=== PATIENT | male | born 1930 | race Caucasian/White ===

== ENCOUNTER 2016-08-10 12:04 | Inpatient (IN) | payer MEDICARE, OTHER ==
[2016-08-10] MEDS ORDERED: SODIUM CHLORIDE 0.9% 3 ML FLUSH FLUSH PRN (12:17)
[2016-08-10 12:28] LABS: AUTOMATED BASOPHIL 0.5 % (0-2); AUTOMATED LYMPH 14.5 % (17-44); AUTOMATED MONOCYTE 9.2 % (3-10); AUTOMATED NEUTROPHIL 74.8 % (45-76)
--- NOTE | 2016-08-10 12:54 | EDPRACDOC ---
<GómezLisa longjamel Diaz - Last Filed: 08/10/16 15:26> - General Information Information Source: Patient, Skilled Nursing, Visual Developer Mode Of Arrival: Ambulance - History of Present Illness Onset: 08/08/2016 Exact Onset of Symptoms: Unknown HPI: PT PRESENTED TO ED WITH BILATERAL LOWER EXT EDEMA RT GREATER THAN LT, WEAKNESS FATIGUE NOT MOVING AROUND LIKE NORMAL MILD CONFUSION AND DECREASED APPETITE FOR SEVERAL DAYS ACCORDING TO DAUGHTER. PT CURRENTLY RESIDES AT [facility] WITH HIS . DAUGHTER STATES THAT THE ONLY NEW MEDICATION WAS STARTED IN MAY AND WAS PROZAC. Symptoms Started: Reports: Gradually Symptoms Description: Constant Weakness: Bilateral: Generalized Symptoms: Reports: Weak Symptom Severity: Reports: Unable to performs ADL's Associated signs and symptoms:: Reports: Nausea (INTERMITTENT) <Patti Mcgee - Last Filed: 08/10/16 16:35> - General Information Chief Complaint: Generalized Weakness Stated Complaint: WEAKNESS Time Seen by Provider: 08/10/16 12:16 Home Medications: Home Medications Aspirin [Aspirin EC] 81 mg PO HS 03/18/13 Nitroglycerin [Nitrostat] 0.4 mg SL Q5M PRN 03/18/13 Acetaminophen Ex Str Tablet [TYLENOL EXTRA STRENGTH Tablet] 1,000 mg PO Q4H PRN 08/10/16 Aspirin [Ramon Aspirin] 325 mg PO .PRN PRN 08/10/16 Cetirizine HCl [Zyrtec] 10 mg PO .[id number] 08/10/16 Ferrous Sulfate [Feosol] 325 mg PO QAM 08/10/16 Fluoxetine HCl [Prozac] 20 mg PO HS 08/10/16 Guaifenesin [Robitussin] 10 ml PO .[id number] PRN 08/10/16 Hydrocortisone/Aloe Vera [Hydrocortisone-Aloe 0.5% Cream] 28.4 gm TOP Q6H PRN Isosorbide Mononitrate [Isosorbide Mononitrate ER] 60 mg PO QAM 08/10/16 Loperamide HCl [Imodium A-D] 2 mg PO DIR PRN 08/10/16 Magnesium Hydroxide [Milk of Magnesia] 30 ml PO DAILY PRN 08/10/16 Magnesium Hydroxide/Al Hydrox [Mylanta Liquid] 30 ml PO QID PRN 08/10/16 Melatonin/Pyridoxine [Melatonin 3 mg Tablet] 1 each PO HS 08/10/16 Multivitamin [Multiple Vitamins] 1 each PO QAM 08/10/16 Neomy Sulf/Bacitrac Zn/Poly [Triple Antibiotic Ointment] 28 gm TOP Q12H PRN Pantoprazole Sodium [Protonix] 40 mg PO MOWEFR 08/10/16 Pravastatin [Pravachol] 20 mg PO HS 08/10/16 Allergies/Adverse Reactions: Allergies Allergy/AdvReac Type Severity Reaction Status Date / Time No Known Allergies Allergy Verified 08/10/16 12:24 ED Past Medical History - Patient Medical History Cardiac History: Reports: CABG (1996), Other GI/ History: Reports: [facility] GI Yes/No Other (GIB (REMOTE)) <Sagrario Gómez - Last Filed: 08/10/16 15:26> - History Reviewed Yes Nurses notes reviewed and agree except as marked Travel Outside of [place] in the Last 3 Months?: No Information Unobtainable: Yes Unable to obtain information due to patient condition (FAMILY AT BEDSIDE FOR INFO) - Patient Medical History Neurological History: Reports: Dementia Cardiac History: Reports: Coronary Artery Disease, Hypertension, Heart Attack, CABG, Hypercholesterolemia GI/ History: Reports: Ulcer Psychological History: Denies: Depression Systemic History: Reports: Anemia Surgical History: Reports: CABG, Hernia Surgery - Family Medical History Reports: Diabetes - Social Medical History Smoking Status: Current status unknown ETOH: None Substance Abuse: None Lives With: Spouse, Other Lives In: Assisted Living ([facility]) <Patti Mcgee - Last Filed: 08/10/16 16:35> EDM Review of Systems - Review of Systems ROS Negative Except as Marked: Yes All systems reviewed and were negative except as marked ROS Unobtainable: Yes Review of systems cannot be obtained due to the patient's medical condition ([place] FAMILY AT BEDSIDE FOR INFO) Constitutional: Fatigue, Loss of Appetite, Weakness. negative: Chills, Fever Eyes: No Symptoms Reported. negative: Redness, Blurred Vision, Double Vision, Discharge, Pain, Light Sensitive, Photophobia Ears: No Symptoms Reported. negative: Pain, Hearing Loss, Drainage, Ear Pulling Throat: No Symptoms Reported. negative: Pain, Swelling Nose: No Symptoms Reported. negative: Congestion, Bleeding, Discharge, Injection, Swelling, Deformity, Ecchymosis, Tender, Abrasion, Laceration Mouth: No Symptoms Reported. negative: Pain, Drooling Respiratory: No Symptoms Reported. negative: Cough, Brassy Cough, Barky Cough, Shortness of Breath, Wheezing, Hemoptysis Cardiovascular: No Symptoms Reported. negative: Chest Pain, Palpitations, Syncope, Edema, Orthopnea, PND, Skin Mottling, Cyanosis Gastrointestinal: No Symptoms Reported. negative: Constipation, Diarrhea, Formula Intolerance, Melena, Nausea, Pain, Vomiting Genitourinary: No Symptoms Reported. negative: Dysuria, Hematuria, Frequency, Discharge, Bleeding, Testicular Pain, Neurological: No Symptoms Reported. negative: Headache, Dizziness, Seizure, Numbness, Weakness, Speech Difficulty, Gait Difficulty Musculoskeletal: No Symptoms Reported. negative: Neck, Chestwall, Ribs, Back, Shoulder, Arm, Elbow, Forearm, Wrist, Hand, Pelvis, Hip, Femur, Knee, Leg, Ankle , Foot Integumentary: Other (BILATERAL LOWER EXT EDEMA). negative: Bruising, Itching, Rash, Wound Allergic/Immunologic: No Symptoms Reported. negative: Hives, Itching Hematologic: No Symptoms Reported. negative: Lymphadenopathy, Easy Bruising, Easy Bleeding Endocrine: No Symptoms Reported. negative: Weight Gain, Weight Loss Psychiatric: No Symptoms Reported. negative: Anxiety, Depression, Hallucinations, Insomnia, Suicidal <Patti Mcgee - Last Filed: 08/10/16 16:35> - Physical Exam Last recorded Vital Signs: Last Vital Signs Temp 98.1 F 08/10/16 12:09 Pulse 82 08/10/16 13:11 Resp 18 08/10/16 13:11 BP 150/67 08/10/16 13:11 Pulse Ox 97 08/10/16 13:11 Oxygen Pulse Oxygen Saturation 97 O2 Device Room Air Oxygen Flow Rate Fraction of Inspired Oxygen ( FIO2) <Sagrario Gómez - Last Filed: 08/10/16 15:26> - Physical Exam Constitutional: No apparent distress, Alert (Awake), Confused (MILD FOR DEMENTIA ) Oriented to: Time, Person, Place Last recorded Vital Signs: Last Vital Signs Temp 98.1 F 08/10/16 12:09 Pulse 93 08/10/16 12:09 Resp 15 08/10/16 12:09 BP 144/76 08/10/16 12:09 Pulse Ox 96 08/10/16 12:09 Oxygen Pulse Oxygen Saturation 96 O2 Device Oxygen Flow Rate Fraction of Inspired Oxygen ( FIO2) - HEENT Head: Normal ( normocephalic) Eye Exam: Normal (PERRL, EOMI, Sclera white) Oropharynx: Normal (Pharynx:Moist without exudate,Gums-no swelling) Tympanic Membrane: Normal ENT EAC: Normal TMJ: Normal Nose: No Symptoms Reported (septum midline) Neck: Normal (FROM, trachea at midline) - Respiratory/Cardiovascular Respiratory: Diminished, Other (COARSE BILATERAL) Cardiovascular: Normal (RRR without murmur, gallop or rub) - GI Auscultation: Normal (NABS) Palpation: Normal (Soft,No rebound or guarding, non distended) Tenderness: Non tender Carmona's Sign: Negative - Bladder: Normal - Musculoskeletal Back: Normal (Non-Tender) Extremities: Edema (BILATERAL RT GREATER THAN LEFT) - Integumentary Skin: Normal, Warm, Dry, Other (MULTIPLE HEALING WOUNDS TO LOWER EXTREMITIES) Lymphatics: Normal (no adenopathy) - Neurologic Memory Impaired: Normal Motor Function: Normal (Normal tone, Pulses 2+ No cyanosis or edema, FROM) Cranial Nerve: Normal (CN II-X11 intact sensation, strength 5/5) Cerebellar: Normal Mood Description: Normal Perception: Normal <Patti Mcgee - Last Filed: 08/10/16 16:35> - Re-evaluation Re-evaluation 3 Re-evaluation Time: 14:47 DISCUSSED WITH PRIMARY BOARD HAMMER OPERATOR DR. GARZA: HISTORY OF CORONARY ARTERY DISEASE IN THE PAST WITH BYPASS GRAFTING IN PREVIOUS BALLOON ANGIOPLASTY. HOWEVER NO HISTORY OF CONGESTIVE HEART FAILURE. NO OTHER SYMPTOMS CURRENTLY GOING ON AT THIS TIME DR. GARZA WILL SEE IN THE EMERGENCY DEPARTMENT. I DISCUSSED INPATIENT CARE VERSUS OUTPATIENT CARE WITH THE FAMILY AND THEY MUCH PREFER TO HAVE THIS MANAGED AN INPATIENT SETTING. - Results 08/10/16 12:15 08/10/16 12:15 WBC 9.3 xk/uL (3.8-10.8) 08/10/16 12:15 RBC 4.48 xM/uL (4.70-6.10) L 08/10/16 12:15 Hgb 13.8 g/dL (14.0-18.0) L 08/10/16 12:15 Hct 41.1 % (42-52) L 08/10/16 12:15 MCV 92 fL (80-94) 08/10/16 12:15 MCH 30.7 pg (27-32) 08/10/16 12:15 MCHC 33.5 g/dl (33-36) 08/10/16 12:15 RDW 14.1 % (11.5-14.5) 08/10/16 12:15 Plt Count 235 xk/uL (130-400) 08/10/16 12:15 MPV 8.0 fL (7.4-10.4) 08/10/16 12:15 Neut % (Auto) 74.8 % (45-76) 08/10/16 12:15 Lymph % (Auto) 14.5 % (17-44) L 08/10/16 12:15 [place] % (Auto) 9.2 % (3-10) 08/10/16 12:15 Eos % (Auto) 1.0 % (0-5) 08/10/16 12:15 Baso % (Auto) 0.5 % (0-2) 08/10/16 12:15 Absolute Neuts (auto) 6.88 xk/uL (1.7-8.2) 08/10/16 12:15 Absolute Lymphs (auto) 1.30 xk/uL (0.65-4.75) 08/10/16 12:15 PT 11.8 SEC (9.2-11.2) H 08/10/16 12:15 INR 1.1 08/10/16 12:15 APTT 27.3 SEC (22-35) 08/10/16 12:15 Sodium 140 mEq/L (137-146) 08/10/16 12:15 Potassium 4.6 mEq/L (3.5-5.1) 08/10/16 12:15 Chloride 105 mEq/L (98-107) 08/10/16 12:15 Carbon Dioxide 27 mMOL/L (22-33) 08/10/16 12:15 Anion Gap 13 mEq/L (8-16) 08/10/16 12:15 BUN 34 MG/DL (9-20) H 08/10/16 12:15 Creatinine 1.20 MG/DL (0.66-1.25) 08/10/16 12:15 Estimated GFR (MDRD) 58 mL/min (>=60) L 08/10/16 12:15 Glucose 107 MG/DL (70-99) H 08/10/16 12:15 Calculated Osmolality 277 MOs/Kg (270-290) 08/10/16 12:15 Calcium 8.6 MG/DL (8.4-10.2) 08/10/16 12:15 Corrected Calcium 9.2 MG/DL (8.4-10.2) 08/10/16 12:15 Total Bilirubin 0.8 MG/DL (0.2-1.3) 08/10/16 12:15 AST 31 IU/L (17-59) 08/10/16 12:15 ALT 37 IU/L (21-72) 08/10/16 12:15 Alkaline Phosphatase 79 IU/L (50-160) 08/10/16 12:15 Troponin I 0.02 ng/mL (<.04) 08/10/16 12:15 Tcm-L-Qdrpyjenlag Pept 23181 pg/mL (0-1800) H 08/10/16 12:15 Total Protein 6.9 G/DL (6.3-8.2) 08/10/16 12:15 Albumin 3.4 G/DL (3.5-5.0) L 08/10/16 12:15 Urine Color Yellow 08/10/16 13:19 Urine Clarity Clear 08/10/16 13:19 Urine pH 5.0 (5.0-8.0) 08/10/16 13:19 Ur Specific [place] 1.020 (1.003-1.035) 08/10/16 13:19 Urine Protein Trace (NEG/TRACE) 08/10/16 13:19 Urine Glucose (UA) Neg (NEGATIVE) 08/10/16 13:19 Urine Ketones Neg (NEGATIVE) 08/10/16 13:19 Urine Occult Blood Neg (NEG/TRACE) 08/10/16 13:19 Urine Nitrite Neg (NEGATIVE) 08/10/16 13:19 Urine Bilirubin Neg (NEGATIVE) 08/10/16 13:19 Urine Urobilinogen 0.2 MG/DL (0-1) 08/10/16 13:19 Ur Leukocyte Esterase Neg (NEGATIVE) 08/10/16 13:19 Urine RBC 2-5 (0-2) H 08/10/16 13:19 Urine WBC 0-2 (0-2) 08/10/16 13:19 Ur Epithelial Cells Occ 08/10/16 13:19 Urine Bacteria Few (NEG/FEW) 08/10/16 13:19 Urine Mucus Mod (NEG/OCC) H 08/10/16 13:19 Lab Results 08/10/16 08/10/16 08/10/16 13:19 12:15 12:15 WBC 9.3 RBC 4.48 L Hgb 13.8 L Hct 41.1 L MCV 92 MCH 30.7 MCHC 33.5 RDW 14.1 Plt Count 235 MPV 8.0 Neut % (Auto) 74.8 Lymph % (Auto) 14.5 L [place] % (Auto) 9.2 Eos % (Auto) 1.0 Baso % (Auto) 0.5 Absolute Neuts (auto) 6.88 Absolute Lymphs (auto) 1.30 PT 11.8 H INR 1.1 APTT 27.3 Sodium Potassium Chloride Carbon Dioxide Anion Gap BUN Creatinine Estimated GFR (MDRD) Glucose Calculated Osmolality Calcium Corrected Calcium Total Bilirubin AST ALT Alkaline Phosphatase Troponin I Nsz-E-Orkjqdhzsor Pept Total Protein Albumin Urine Color Yellow Urine Clarity Clear Urine pH 5.0 Ur Specific [place] 1.020 Urine Protein Trace Urine Glucose (UA) Neg Urine Ketones Neg Urine Occult Blood Neg Urine Nitrite Neg Urine Bilirubin Neg Urine Urobilinogen 0.2 Ur Leukocyte Esterase Neg Urine RBC 2-5 H Urine WBC 0-2 Ur Epithelial Cells Occ Urine Bacteria Few Urine Mucus Mod H 08/10/16 12:15 WBC RBC Hgb Hct MCV MCH MCHC RDW Plt Count MPV Neut % (Auto) Lymph % (Auto) [place] % (Auto) Eos % (Auto) Baso % (Auto) Absolute Neuts (auto) Absolute Lymphs (auto) PT INR APTT Sodium 140 Potassium 4.6 Chloride 105 Carbon Dioxide 27 Anion Gap 13 BUN 34 H Creatinine 1.20 Estimated GFR (MDRD) 58 L Glucose 107 H Calculated Osmolality 277 Calcium 8.6 Corrected Calcium 9.2 Total Bilirubin 0.8 AST 31 ALT 37 Alkaline Phosphatase 79 Troponin I 0.02 Cwz-Q-Aqnxnvjwciu Pept 20271 H Total Protein 6.9 Albumin 3.4 L Urine Color Urine Clarity Urine pH Ur Specific [place] Urine Protein Urine Glucose (UA) Urine Ketones Urine Occult Blood Urine Nitrite Urine Bilirubin Urine Urobilinogen Ur Leukocyte Esterase Urine RBC Urine WBC Ur Epithelial Cells Urine Bacteria Urine Mucus <Sagrario Gómez N - Last Filed: 08/10/16 15:26> - Differential Diagnosis Dehydration, Electrolyte disorder, Hypoglycemia, Other (CKD, CHF, PERIPHERAL EDEMA) - Results 08/10/16 12:15 08/10/16 12:15 WBC 9.3 xk/uL (3.8-10.8) 08/10/16 12:15 RBC 4.48 xM/uL (4.70-6.10) L 08/10/16 12:15 Hgb 13.8 g/dL (14.0-18.0) L 08/10/16 12:15 Hct 41.1 % (42-52) L 08/10/16 12:15 MCV 92 fL (80-94) 08/10/16 12:15 MCH 30.7 pg (27-32) 08/10/16 12:15 MCHC 33.5 g/dl (33-36) 08/10/16 12:15 RDW 14.1 % (11.5-14.5) 08/10/16 12:15 Plt Count 235 xk/uL (130-400) 08/10/16 12:15 MPV 8.0 fL (7.4-10.4) 08/10/16 12:15 Neut % (Auto) 74.8 % (45-76) 08/10/16 12:15 Lymph % (Auto) 14.5 % (17-44) L 08/10/16 12:15 [place] % (Auto) 9.2 % (3-10) 08/10/16 12:15 Eos % (Auto) 1.0 % (0-5) 08/10/16 12:15 Baso % (Auto) 0.5 % (0-2) 08/10/16 12:15 Absolute Neuts (auto) 6.88 xk/uL (1.7-8.2) 08/10/16 12:15 Absolute Lymphs (auto) 1.30 xk/uL (0.65-4.75) 08/10/16 12:15 Lab Results 08/10/16 12:15 WBC 9.3 RBC 4.48 L Hgb 13.8 L Hct 41.1 L MCV 92 MCH 30.7 MCHC 33.5 RDW 14.1 Plt Count 235 MPV 8.0 Neut % (Auto) 74.8 Lymph % (Auto) 14.5 L [place] % (Auto) 9.2 Eos % (Auto) 1.0 Baso % (Auto) 0.5 Absolute Neuts (auto) 6.88 Absolute Lymphs (auto) 1.30 - EKG EKG #1 EKG Time: 12:18 -: Yes EKG interpreted by me Rate: bpm: 89 [place]: Normal Rhythm: NSR Block: 1, AVB Hypertrophy: LVH ST: Normal <Patti Mcgee - Last Filed: 08/10/16 16:35> - Departure Yes I personally saw and evaluated the patient. Disposition: Admit IP To This Hospital Decision to Admit Time: 15:26 Decision to admit date: 08/10/16 Decision to admit: from ED - Physician Consulted Cardiology Time Called: 14:45 Provider Called: Trevor Garza Time Deputy General Counsel Returned Call: 14:45 Hospitalist Time Called: 15:27 Provider Called: Janet Munoz Time Deputy General Counsel Returned Call: 15:27 <Sagrario Gómez - Last Filed: 08/10/16 15:26> <Patti Mcgee - Last Filed: 08/10/16 16:35> - Departure Final Diagnosis: New onset of congestive heart failure Dyspnea Qualifiers: Dyspnea type: shortness of breath Qualified Code(s): R06.02 - Shortness of breath Instructions: Weakness (General), *Heart Failure (Activity, Diet, Worsening Symptoms, Weight Monitoring)(ED) Referrals: None,No Provider [Primary Care Provider] - One Week
[2016-08-10 12:55] LABS: BLOOD UREA NITROGEN 34 MG/DL (9-20); CALC CORRECTED 9.2 MG/DL (8.4-10.2); CALCIUM 8.6 MG/DL (8.4-10.2); CALCULATED OSMOLALITY 277 MOs/Kg (270-290); CHLORIDE 105 mEq/L (98-107); GLUCOSE 107 MG/DL (70-99); SODIUM LEVEL 140 mEq/L (137-146); TOTAL PROTEIN 6.9 G/DL (6.3-8.2)
--- NOTE | 2016-08-10 12:58 | DIRPT ---
CLINICAL DATA: Weakness. EXAM: PORTABLE CHEST 1 VIEW COMPARISON: 05/01/2013 chest radiograph. FINDINGS: Sternotomy wires appear aligned and intact. Mild cardiomegaly, increased. Otherwise stable mediastinal contour. No pneumothorax. New small right and moderate left pleural effusions. Hazy and linear parahilar opacities in the right greater than left lungs. Bibasilar lung opacities, likely atelectasis. IMPRESSION: 1. New mild cardiomegaly. New hazy and linear parahilar opacities in both lungs, asymmetric to the right, favor asymmetric moderate pulmonary edema from congestive heart failure. 2. New small right and moderate left pleural effusions with associated bibasilar atelectasis. Electronically Signed By: Les Beltran M.D. On: 08/10/2016 12:56
[2016-08-10 13:00] LABS: PARTIAL THROMB. TIME 27.3 SEC (22-35); PT-INR 1.1
[2016-08-10 13:35] LABS: WBC/URINE 0-2 (0-2)
[2016-08-10 13:36] LABS: LEUKOCYTES/URINE NEG (NEGATIVE); NITRITE/URINE NEG (NEGATIVE); URINE OCCULT BLOOD NEG (NEG/TRACE)
[2016-08-10] MEDS ORDERED: NITROGLYCERINE 2 % OINTMENT PACK TOP ONE (14:11)
[2016-08-10] MEDS ORDERED: FUROSEMIDE 40 MG/4 ML VIAL IV ONE (14:11)
[2016-08-10] MEDS ORDERED: ASPIRIN 325 MG TAB PO ONE (14:11)
--- NOTE | 2016-08-10 14:51 | PCM.CARDCO ---
Consultation Date: 08/10/16 Requesting Physician: Sagrario Gómez Melt Room Operator: Trevor Abrams Consult Reason: CHF - History of Present Illness Known to me he was seen in my office previously the history of CAD bypass surgery in 1996 and plain old balloon angioplasty of vein graft to the marginal in 2012 in the setting of type 2 myocardial infarction with GI bleed due to peptic ulcer disease and anemia. He has transition my practice he has had no cardiac diagnostic testing. Echocardiogram in [place] 2013 shows normal ejection fraction moderate aortic and mild mitral regurgitation. When I see the patient emergency room he is comfortable supine I cannot get him or his family take now which now that he was short of breath but they do tell me his legs were swollen he has had poor appetite he has lost weight has been increasingly weak and they have concerns about his Prozac cognition and spirits prompting the emergency room visit. Despite increasing edema is weight is down 4 lb in last month. He denies chest pain palpitation or syncope he just does not have an appetite and stopped eating. Chief Complaint: Shortness of breath and edema - Past Medical and Surgical History Cardiac History: Reports: Hypertension, CABG (1996), Hypercholesterolemia, Other GI/ History: Reports: Renal Disease, Ulcer, PMH GI Yes/No Other (GIB (REMOTE) ) Systemic History: Reports: Anemia Neurological History: Reports: Other (Dementia as a new diagnosis along with depression) Past Surgical History: Reports: CABG (1996) Allergies No Known Allergies Allergy (Verified 08/10/16 12:24) per pt Home Medications Aspirin [Aspirin EC] 81 mg PO HS 03/18/13 Nitroglycerin [Nitrostat] 0.4 mg SL Q5M PRN 03/18/13 Acetaminophen Ex Str Tablet [TYLENOL EXTRA STRENGTH Tablet] 1,000 mg PO Q4H PRN 08/10/16 Aspirin [Ramon Aspirin] 325 mg PO .PRN PRN 08/10/16 Cetirizine HCl [Zyrtec] 10 mg PO .[id number] 08/10/16 Ferrous Sulfate [Feosol] 325 mg PO QAM 08/10/16 Fluoxetine HCl [Prozac] 20 mg PO HS 08/10/16 Guaifenesin [Robitussin] 10 ml PO .[id number] PRN 08/10/16 Hydrocortisone/Aloe Vera [Hydrocortisone-Aloe 0.5% Cream] 28.4 gm TOP Q6H PRN Isosorbide Mononitrate [Isosorbide Mononitrate ER] 60 mg PO QAM 08/10/16 Loperamide HCl [Imodium A-D] 2 mg PO DIR PRN 08/10/16 Magnesium Hydroxide [Milk of Magnesia] 30 ml PO DAILY PRN 08/10/16 Magnesium Hydroxide/Al Hydrox [Mylanta Liquid] 30 ml PO QID PRN 08/10/16 Melatonin/Pyridoxine [Melatonin 3 mg Tablet] 1 each PO HS 08/10/16 Multivitamin [Multiple Vitamins] 1 each PO QAM 08/10/16 Neomy Sulf/Bacitrac Zn/Poly [Triple Antibiotic Ointment] 28 gm TOP Q12H PRN Pantoprazole Sodium [Protonix] 40 mg PO MOWEFR 08/10/16 Pravastatin [Pravachol] 20 mg PO HS 08/10/16 - Social History Lives: in Prison/[facility] Smoking Status: Current status unknown Social History: Denies: Alcohol Use, Substance Use Disorder - Family History Reports: Diabetes - Review of Systems Yes All systems reviewed and were negative except as marked Constitutional: Fatigue, Loss of Appetite, Weakness. negative: Chills, Fever - Respiratory negative: Cough, Hemoptysis, Shortness of Breath, Pleurisy - Cardiovascular Edema. negative: Chest Pain, Cyanosis, Orthopnea, Palpitations, PND, Syncope - Gastrointestinal Gastrointestinal: Other (Poor appetite weight loss) - Psychiatric Depression, Other (And dementia) - Physical Exam Constitutional: No apparent distress, Alert (Awake), Other (He appears very frail and chronically ill in appearance poor muscle mass) Oriented to: Time, Person, Place Exam: Last Vital Signs Temp 98.1 F 08/10/16 12:09 Pulse 90 08/10/16 14:40 Resp 16 08/10/16 14:40 BP 139/77 08/10/16 14:40 Pulse Ox 94 08/10/16 14:40 Intake & Output 08/09/16 08/10/16 08/10/16 23:59 07:59 15:59 Output Total 30 Balance -30 Patient's weight 120 lb - HEENT Head: Normal (Mild neck vein distention no bruit) Eye: Normal (PERRL, EOMI, Sclera white) Oropharynx: Normal (Pharynx:Moist without exudate,Gums-no swelling) Tympanic Membrane: Normal ENT EAC: Normal TMJ: Normal Nose: No Symptoms Reported (septum midline) - Respiratory/Cardiovascular Respiratory: Diminished, Other (COARSE BILATERAL). negative: Rales, Rhonchi, Wheezes Cardiovascular: Systolic murmur (A 2 of 6 apical murmur of MR 1 a 6 aortic outflow murmur 1 of 6 AR.). negative: Gallop/S3 - GI Auscultation: Normal (NABS) Palpation: Normal (Soft,No rebound or guarding, non distended) Tenderness: Non tender - Musculoskeletal Back: Normal (Non-Tender) Extremities: Edema (Right greater than left lower extremity 2+ in the right 1+ on the left no edema), Femoral Pulse, Pedal Edema, Pedal Pulse, Radial Pulse. negative: Calf Tenderness, Clubbing, Cyanosis - Integumentary Skin: Normal, Warm, Dry, Other (MULTIPLE HEALING WOUNDS TO LOWER EXTREMITIES). negative: Diaphoretic, Pale, Mottling, Petechiae Lymphatics: Normal (no adenopathy) - Neurologic Memory Impaired: Normal Cerebellar: Normal Mood Description: Normal Perception: Normal - Lab Results Laboratory Tests 08/10/16 08/10/16 08/10/16 12:15 12:15 12:15 Hgb 13.8 L Hct 41.1 L Plt Count 235 INR 1.1 Potassium 4.6 Creatinine 1.20 Troponin I 0.02 Fer-M-Dikxwpuplhr Pept 65001 H Chest x-ray report today 1. New mild cardiomegaly. New hazy and linear parahilar opacities in both lungs, asymmetric to the right, favor asymmetric moderate pulmonary edema from congestive heart failure. 2. New small right and moderate left pleural effusions with associated bibasilar atelectasis. Lower extremity venous duplex shows no evidence of deep vein thrombosis - Assessment/Plan (1) Heart failure I50.9 - HEART FAILURE, UNSPECIFIED Acute Present on Admission: Yes unspecified heart failure type Comment: New onset decompensated clinically and by BNP level and chest x-ray. I will start him on low-dose diuretic and a require an echocardiogram tomorrow to assess left ventricular systolic diastolic function valvular regurgitation and pulmonary pressures. (2) CAD (coronary artery disease) I25.10 - ATHSCL HEART DISEASE OF [place] CORONARY ARTERY W/O ANG PCTRS Chronic Present on Admission: Yes [place] [facility] Comment: Stable continue usual cardiac medications including aspirin oral nitrates and a statin, he is not on beta-nighat with previous bradycardia in the past (3) Hypertensive heart disease with CHF I11.0 - HYPERTENSIVE HEART DISEASE WITH HEART FAILURE Acute Comment: Stable continue current meds (4) Hyperlipemia E78.5 - HYPERLIPIDEMIA, UNSPECIFIED Chronic Present on Admission: Yes unspecified E78.5 - Hyperlipidemia, unspecified Comment: Stable continue low intensity statin with CAD age greater than 75 and high risk of muscle toxicity with frail status. (5) Hyperlipidemia E78.5 - HYPERLIPIDEMIA, UNSPECIFIED Acute Case Care Discussed with: Patient, Family (And Dr. Gómez)
[2016-08-10] MEDS ORDERED: Albuterol/Ipratropium Neb 3 ML NEB NEB PRN (16:15)
[2016-08-10] MEDS ORDERED: ALOE VERA TOP PRN (16:22)
[2016-08-10] MEDS ORDERED: GUAIFENESIN 200 MG/10 ML UDC PO PRN ×2 (16:22→16:42)
[2016-08-10] MEDS ORDERED: [UNRECOGNIZED DRUG - OTHER] TOP PRN (16:22)
[2016-08-10] MEDS ORDERED: [UNRECOGNIZED DRUG - OTHER] PO PRN (16:22)
[2016-08-10] MEDS ORDERED: HYDROCORTISONE TOP PRN (16:22)
[2016-08-10] MEDS ORDERED: NITROGLYCERINE 0.4 MG TAB SL PRN (16:22)
--- NOTE | 2016-08-10 16:24 | HISTPHYS ---
- Chief Complaint sob, weakness, - History of Present Illness 85 yowm resident of assisted living facility brought to emergency room early on today for evaluation of progressive worsening weakness and leg swelling. Family has noted over past 2 weeks patient has developed progressive worsening edema more so on the right than on the left. Patient reports exertional dyspnea and recent episodes of PND and orthopnea as well. Family stays that he is being profoundly weak and very fatigued and dyspneic with minimal physical exertion lately. No recent falls or accidents. Family stays that patient has been having problems with persistent nausea indigestion with eating solids, no problems tolerating liquids. ED workup was undertaken and patient was found to be in decompensated failure. Medical consultation was phoned in for inpatient treatment. - Medical History Cardiac History: Reports: Coronary Artery Disease, CABG (1996), Hypercholesterolemia, Valvular Heart Disease, Other Respiratory History: Reports: No Significant History GI/ History: Reports: Renal Disease, Gastroesophageal Reflux, PMH GI Yes/No Other (GIB (REMOTE)) Musculoskeletal History: Reports: No Significant History Systemic History: Reports: No Significant History Neurological History: Reports: Dementia Psychological History: Reports: Depression, Anxiety. Denies: Alcoholism, Substance Use Disorder - Surgical History Reports: CABG (1996), Other (stent x 2 , hernia,) - Medictions/Allergies Allergies No Known Allergies Allergy (Verified 08/10/16 12:24) per pt Current Medication List: Reviewed Home Medications Aspirin [Aspirin EC] 81 mg PO HS 03/18/13 Nitroglycerin [Nitrostat] 0.4 mg SL Q5M PRN 03/18/13 Acetaminophen Ex Str Tablet [TYLENOL EXTRA STRENGTH Tablet] 1,000 mg PO Q4H PRN 08/10/16 Aspirin [Ramon Aspirin] 325 mg PO .PRN PRN 08/10/16 Cetirizine HCl [Zyrtec] 10 mg PO .[id number] 08/10/16 Ferrous Sulfate [Feosol] 325 mg PO QAM 08/10/16 Fluoxetine HCl [Prozac] 20 mg PO HS 08/10/16 Guaifenesin [Robitussin] 10 ml PO .[id number] PRN 08/10/16 Hydrocortisone/Aloe Vera [Hydrocortisone-Aloe 0.5% Cream] 28.4 gm TOP Q6H PRN Isosorbide Mononitrate [Isosorbide Mononitrate ER] 60 mg PO QAM 08/10/16 Loperamide HCl [Imodium A-D] 2 mg PO DIR PRN 08/10/16 Magnesium Hydroxide [Milk of Magnesia] 30 ml PO DAILY PRN 08/10/16 Magnesium Hydroxide/Al Hydrox [Mylanta Liquid] 30 ml PO QID PRN 08/10/16 Melatonin/Pyridoxine [Melatonin 3 mg Tablet] 1 each PO HS 08/10/16 Multivitamin [Multiple Vitamins] 1 each PO QAM 08/10/16 Neomy Sulf/Bacitrac Zn/Poly [Triple Antibiotic Ointment] 28 gm TOP Q12H PRN Pantoprazole Sodium [Protonix] 40 mg PO MOWEFR 08/10/16 Pravastatin [Pravachol] 20 mg PO HS 08/10/16 - Family History Reports: Diabetes - Social History Travel Outside of [place] in the Last 3 Months?: No Lives: in [facility], With Family Smoking Status: Current status unknown Social History: Denies: Alcohol Use, Substance Use Disorder - Review of Systems Constitutional: Diaphoresis, Fatigue, Loss of Appetite, Weakness, Weight gain Eyes: No Symptoms Reported Ears: No Symptoms Reported Nose: No Symptoms Reported Mouth: No Symptoms Reported Throat/Neck: No Symptoms Reported Respiratory: Cough, Shortness of Breath, Wheezing, Dyspnea Cardiovascular: No Symptoms Reported Gastrointestinal: Nausea, Constipation, Dysphasia, Heartburn Genitourinary: Nocturia Neurological: Dizziness, Numbness, Weakness Musculoskeletal:: Arthritis Integumentary: No Symptoms Reported Allergic/Immunologic: No Symptoms Reported Hematologic: No Symptoms Reported Endocrine: No Symptoms Reported Psychiatric: No Symptoms Reported - Physical Exam Vital Signs: Initial Vitals Temperature 98.1 F 08/10/16 12:09 Pulse Rate 93 08/10/16 12:09 Respiratory Rate 15 08/10/16 12:09 Blood Pressure 144/76 08/10/16 12:09 Pulse Oxygen Saturation 96 08/10/16 12:09 Constitutional: Alert, Cachectic, Distress Oriented to: Time, Person, Place - HEENT Head: Normal Eye: Normal Oropharynx: Normal ENT EAC: Normal TMJ: Normal Nose: No Symptoms Reported Respiratory: Diminished, Rales, Wheezes Cardiovascular: Normal, Systolic murmur - GI Auscultation: Normal Palpation: Normal Tenderness: Non tender Rectal Exam: Deferred - Exam Deferred: Yes - Musculoskeletal Back: Other Extremities: Edema Spine: limited range of motion - Integumentary Skin: Normal, Warm, Dry Lymphatics: Normal - Neurologic Memory Impaired: Short-term Motor Function: Abnormal Cranial Nerve: Normal Cerebellar: Ataxia Mood Description: Anxious Thought: Coherent Perception: Normal - Focused CV Perfusion Exam Vital Signs: Last Vital Signs Temp 98.1 F 08/10/16 12:09 Pulse 90 08/10/16 14:40 Resp 08/10/16 14:40 BP 139/77 08/10/16 14:40 Pulse Ox 94 08/10/16 14:40 - Diagnostic Findings Allergies No Known Allergies Allergy (Verified 08/10/16 12:24) per pt Last Vital Signs Temp 98.1 F 08/10/16 12:09 Pulse 86 08/10/16 15:40 Resp 16 08/10/16 15:40 BP 134/68 08/10/16 15:40 Pulse Ox 97 08/10/16 15:40 08/10/16 12:15 08/10/16 12:15 Abnormal Lab Results 08/10/16 08/10/16 08/10/16 12:15 12:15 12:15 RBC 4.48 L Hgb 13.8 L Hct 41.1 L Lymph % (Auto) 14.5 L PT 11.8 H BUN 34 H Estimated GFR (MDRD) 58 L Glucose 107 H Rym-V-Ferjkqctkty Pept 50838 H Albumin 3.4 L Urine RBC Urine Mucus 08/10/16 13:19 RBC Hgb Hct Lymph % (Auto) PT BUN Estimated GFR (MDRD) Glucose Hdo-B-Humprkiebzv Pept Albumin Urine RBC 2-5 H Urine Mucus Mod H Patient Name: HELIO GILL LOC: ED : 1930 AGE: 85 Order Date:08/10/16 Date of Service: Report # [id number] Ord Physician: Patti Mcgee Exam # [id number] Emergency Physician: Provider,ER Exam(s): [id number] RAD/DG CHEST PORTABLE CLINICAL DATA: Weakness. EXAM: PORTABLE CHEST 1 VIEW COMPARISON: 05/01/2013 chest radiograph. FINDINGS: Sternotomy wires appear aligned and intact. Mild cardiomegaly, increased. Otherwise stable mediastinal contour. No pneumothorax. New small right and moderate left pleural effusions. Hazy and linear parahilar opacities in the right greater than left lungs. Bibasilar lung opacities, likely atelectasis. IMPRESSION: 1. New mild cardiomegaly. New hazy and linear parahilar opacities in both lungs, asymmetric to the right, favor asymmetric moderate pulmonary edema from congestive heart failure. 2. New small right and moderate left pleural effusions with associated bibasilar atelectasis. Electronically Signed By: Les Beltran M.D. On: 08/10/2016 12:56 Electronically Signed By: Les Beltran MD Electronically - Assessment (1) Heart failure, chronic, with acute decompensation I50.9 - HEART FAILURE, UNSPECIFIED Acute Present on Admission: Yes Qualifiers: Heart failure type: diastolic Qualified Code(s): I50.33 - Acute on chronic diastolic (congestive) heart failure Patient will be admitted to monitor bed. Monitor weight and fluid balance. Continue salt restricted diet. Continue imdur, patient will receive Lasix IV 40 mg twice a day. (2) CAD (coronary artery disease) I25.10 - ATHSCL HEART DISEASE OF [place] CORONARY ARTERY W/O ANG PCTRS Chronic Present on Admission: Yes Qualifiers: Coronary Disease-Associated Artery/Lesion type: [place] artery [place] vs. transplanted heart: [place] heart Associated angina: without angina Qualified Code(s): I25.10 - Atherosclerotic heart disease of [place] coronary artery without angina pectoris Continue cardiac regimen. Cardiology has been consulted. Serial troponins will be obtained. (3) Respiratory insufficiency R06.89 - OTHER ABNORMALITIES OF BREATHING Acute Present on Admission: Yes Continue supplemental O2 and nebulized bronchodilators. Monitor pulmonary status. (4) Hyperlipemia E78.5 - HYPERLIPIDEMIA, UNSPECIFIED Chronic Qualifiers: Hyperlipidemia type: unspecified Qualified Code(s): E78.5 - Hyperlipidemia , unspecified Continue statin (5) Adolescent depression F32.9 - MAJOR DEPRESSIVE DISORDER, SINGLE EPISODE, UNSPECIFIED Acute Present on Admission: Yes Continue SSRI in the form of Celexa HS. (6) Dysphagia R13.10 - DYSPHAGIA, UNSPECIFIED Chronic Present on Admission: Yes Qualifiers: Dysphagia type: oropharyngeal phase Qualified Code(s): R13.12 - Dysphagia, oropharyngeal phase Symptoms highly suggestive of esophageal stricture. Will obtain barium swallow. May need upper endoscopy. (7) GERD (gastroesophageal reflux disease) K21.9 - GASTRO-ESOPHAGEAL REFLUX DISEASE WITHOUT ESOPHAGITIS Chronic Present on Admission: Yes Qualifiers: Esophagitis presence: without esophagitis Qualified Code(s): K21.9 - Gastro -esophageal reflux disease without esophagitis continue ppi Case Care Discussed with: Patient, Consultants, Family, Nursing Staff, Tin Can Feeder Total Time: 65 min . Critical Care: No Code: 30282
--- NOTE | 2016-08-10 16:34 | DIRPT ---
CLINICAL DATA: Right lower extremity edema. EXAM: RIGHT LOWER EXTREMITY VENOUS DOPPLER ULTRASOUND TECHNIQUE: Pineda-scale sonography with graded compression, as well as color Doppler and duplex ultrasound were performed to evaluate the lower extremity deep venous systems from the level of the common femoral vein and including the common femoral, femoral, profunda femoral, popliteal and calf veins including the posterior tibial, peroneal and gastrocnemius veins when visible. The superficial great saphenous vein was also interrogated. Spectral Doppler was utilized to evaluate flow at rest and with distal augmentation maneuvers in the common femoral, femoral and popliteal veins. COMPARISON: None. FINDINGS: Contralateral Common Femoral Vein: Respiratory phasicity is normal and symmetric with the symptomatic side. No evidence of thrombus. Normal compressibility. Common Femoral Vein: No evidence of thrombus. Normal compressibility, respiratory phasicity and response to augmentation. Saphenofemoral Junction: No evidence of thrombus. Normal compressibility and flow on color Doppler imaging. Profunda Femoral Vein: No evidence of thrombus. Normal compressibility and flow on color Doppler imaging. Femoral Vein: No evidence of thrombus. Normal compressibility, respiratory phasicity and response to augmentation. Popliteal Vein: No evidence of thrombus. Normal compressibility, respiratory phasicity and response to augmentation. Calf Veins: No evidence of thrombus. Normal compressibility and flow on color Doppler imaging. Superficial Great Saphenous Vein: No evidence of thrombus. Normal compressibility and flow on color Doppler imaging. Venous Reflux: None. Other Findings: None. IMPRESSION: No evidence of deep venous thrombosis. Electronically Signed By: Juan Daniel Light M.D. On: 08/10/2016 16:31
[2016-08-10] MEDS ORDERED: ACETAMINOPHEN 500 MG CAPLET PO PRN (16:41)
[2016-08-10] MEDS ORDERED: HYDROCORTISONE 30 GM TUBE TOP PRN (16:44)
[2016-08-10] MEDS ORDERED: ENOXAPARIN 40 MG/0.4 ML PFS SQ SCH (18:00)
[2016-08-10] MEDS: NS 1,000 ML IV SCH (18:44)
[2016-08-10] MEDS: PANTOPRAZOLE 40 MG TAB PO SCH (18:45)
[2016-08-10] MEDS: SODIUM CHLORIDE 0.9% 3 ML FLUSH FLUSH SCH (18:45)
[2016-08-10] MEDS: Albuterol/Ipratropium Neb 3 ML NEB NEB SCH (20:05)
[2016-08-10] MEDS: CARVEDILOL 3.125 MG TAB PO SCH (20:44)
[2016-08-10] MEDS: PRAVASTATIN 20 MG TAB PO SCH (20:45)
[2016-08-10] MEDS ORDERED: PYRIDOXINE PO SCH (21:00)
[2016-08-10] MEDS ORDERED: MELATONIN PO SCH (21:00)
[2016-08-11] MEDS: Albuterol/Ipratropium Neb 3 ML NEB NEB SCH ×4 (02:31→20:54)
[2016-08-11] MEDS: SODIUM CHLORIDE 0.9% 3 ML FLUSH FLUSH SCH ×2 (03:05→16:02)
[2016-08-11] MEDS ORDERED: Vaccine Screening Complete SCH (04:00)
[2016-08-11] MEDS: PANTOPRAZOLE 40 MG TAB PO SCH ×2 (05:36→16:03)
[2016-08-11 06:06] LABS: BLOOD UREA NITROGEN 33 MG/DL (9-20); CALCIUM 8.2 MG/DL (8.4-10.2); CALCULATED OSMOLALITY 273 MOs/Kg (270-290); CHLORIDE 102 mEq/L (98-107); GLUCOSE 96 MG/DL (70-99); SODIUM LEVEL 138 mEq/L (137-146)
--- NOTE | 2016-08-11 07:38 | PCM.CARD ---
- Subjective Reason for visit: For heart failure Vital Signs: Last Vital Signs Temp 98.3 F 08/11/16 05:06 Pulse 82 08/11/16 06:00 Resp 18 08/11/16 05:06 BP 137/66 08/11/16 05:06 Pulse Ox 96 08/11/16 05:06 Vital Signs Temp 98.3 F 08/11/16 05:06 Pulse 82 08/11/16 06:00 Resp 18 08/11/16 05:06 BP 137/66 08/11/16 05:06 Pulse Ox 96 08/11/16 05:06 Intake & Output 08/09/16 08/10/16 08/11/16 23:59 23:59 23:59 Intake Total 360 Output Total 680 400 Balance -320 -400 Patient's weight 113 lb 4.8 oz 110 lb 8 oz Intake: IV Fluids 0 Normal Saline 1,000 ml @ 0 20 mls/hr IV Q48H [facility] Rx# :[id number] Oral 360 Output: Urine 680 400 Other: Elimination Method Urinal Urinal Urine Color Yellow Yellow Wt Change in KG 3.039 kg loss 1.270 kg loss Weight Change from 6.7 lb(s) loss 2.8 lb(s) loss Previous Weight Weight (Calculated 51.392 50.122 Kilograms) Lab/DI Results Reviewed: Laboratory Tests 08/10/16 08/11/16 18:25 05:05 Potassium 3.8 Creatinine 1.30 H Jxq-A-Selzxqadpkq Pept 67361 H - Assessment/Plan (1) Heart failure Acute I50.9 - HEART FAILURE, UNSPECIFIED Present on Admission: Yes unspecified heart failure type (2) CAD (coronary artery disease) Chronic I25.10 - ATHSCL HEART DISEASE OF [place] CORONARY ARTERY W/O ANG PCTRS Present on Admission: Yes [place] artery [place] heart without angina I25.10 - Atherosclerotic heart disease of [place] coronary artery without angina pectoris (3) Hypertensive heart disease with CHF Acute I11.0 - HYPERTENSIVE HEART DISEASE WITH HEART FAILURE (4) Hyperlipemia Chronic E78.5 - HYPERLIPIDEMIA, UNSPECIFIED Present on Admission: Yes unspecified E78.5 - Hyperlipidemia, unspecified (5) Hyperlipidemia Acute E78.5 - HYPERLIPIDEMIA, UNSPECIFIED
[2016-08-11] MEDS: CARVEDILOL 3.125 MG TAB PO SCH ×2 (08:06→20:44)
[2016-08-11] MEDS: ISOSORBIDE MONONITRATE 60 MG TAB PO SCH (08:06)
[2016-08-11] MEDS: FERROUS SULFATE 324 MG TAB PO SCH (08:06)
[2016-08-11] MEDS: LISINOPRIL 5 MG TAB PO SCH (08:06)
[2016-08-11] MEDS: VITAMINS, MULTIPLE CAP PO SCH (08:06)
[2016-08-11] MEDS: FUROSEMIDE 40 MG/4 ML VIAL IV SCH ×2 (08:07→16:03)
[2016-08-11] MEDS ORDERED: BARIUM SULFATE ONE (08:20)
[2016-08-11] MEDS ORDERED: BARIUM SULFATE 700 MG TABLET ONE (08:20)
[2016-08-11] MEDS ORDERED: [UNRECOGNIZED DRUG - OTHER] ONE (08:20)
[2016-08-11] MEDS ORDERED: [UNRECOGNIZED DRUG - OTHER] ONE (08:20)
[2016-08-11] MEDS ORDERED: Non-Formulary Medication ITEM (Ferrous Sulfate [Feosol] 325 MG) PO SCH (09:00)
[2016-08-11] MEDS ORDERED: Non-Formulary Medication ITEM (Multivitamin [Multiple Vitamins] 1 EACH) PO SCH (09:00)
--- NOTE | 2016-08-11 09:45 | GENMEDPROG ---
Chief Complaint: Lower extremity edema, weakness Subjective Note: Doing well this morning, he feels like his lower extremity swelling is significantly improved, still having some difficulty breathing but does admit that is probably overall better. Denies any chest pain. No nausea. Notes Reviewed: Yes Events from last night noted and discussed with Clinical Staff Current Medication List: Reviewed Currently: Reports: Cough, [place], SOB. Denies: Sputum DVT Prophylaxis: Yes - Physical Examination Vital Signs and I&O: Last Vital Signs Temp 98.2 F 08/11/16 08:00 Pulse 78 08/11/16 08:00 Resp 18 08/11/16 08:00 BP 146/67 08/11/16 08:00 Pulse Ox 92 08/11/16 08:00 Oxygen Pulse Oxygen Saturation 92 O2 Device Room Air Oxygen Flow Rate Fraction of Inspired Oxygen ( FIO2) Intake & Output 08/09/16 08/10/16 08/11/16 08/12/16 06:59 06:59 06:59 06:59 Intake Total 360 Output Total 1050 300 Balance -690 -300 Patient's weight 50.122 kg General: Alert, Oriented x3, Cooperative, Mild distress HEENT: EOMI (Sclera white) Neck: Normal Trachea alignment, Normal inspection Lymphatics: Normal Respiratory: Diminished, Rales Cardiovascular: Regular rate, No Gallops,Rubs/Murmurs GI: Normal bowel sounds, Soft, Non tender (non distended) Extremities/Musculoskeletal: Other (Normal Tone). negative: Edema, Cyanosis Skin: No rashes, No significant lesion Lab/DI/Studies Reviewed: Laboratory Tests 08/10/16 08/10/16 08/10/16 12:15 12:15 16:20 WBC 9.3 Hgb 13.8 L Potassium BUN Creatinine 1.20 Troponin I Opt-T-Hjuhnxncrnf Pept 66477 H TSH 1.61 08/10/16 08/11/16 18:25 05:05 WBC Hgb Potassium 3.8 BUN 33 H Creatinine 1.30 H Troponin I 0.03 Mmq-K-Algrdbovtno Pept 02749 H TSH - Assessment (1) Dyspnea Acute R06.00 - DYSPNEA, UNSPECIFIED Qualifiers: Dyspnea type: shortness of breath Qualified Code(s): R06.02 - Shortness of breath Comment/Plan: Likely due to pulmonary edema, fluid overload related to his acute heart failure exacerbation. Treating as below. (2) Heart failure, chronic, with acute decompensation Acute I50.9 - HEART FAILURE, UNSPECIFIED Qualifiers: Heart failure type: diastolic Qualified Code(s): I50.33 - Acute on chronic diastolic (congestive) heart failure Comment/Plan: Patient has been admitted to monitor bed. Monitor weight and fluid balance. Continue salt restricted diet. Continue imdur, patient will receive Lasix IV 40 mg twice a day, being seen by Cardiology Dr. Abrams. (3) Hyperlipidemia Acute E78.5 - HYPERLIPIDEMIA, UNSPECIFIED (4) Hypertensive heart disease with CHF Acute I11.0 - HYPERTENSIVE HEART DISEASE WITH HEART FAILURE (5) Respiratory insufficiency Acute R06.89 - OTHER ABNORMALITIES OF BREATHING Comment/Plan: Continue supplemental O2 and nebulized bronchodilators. Monitor pulmonary status. (6) CAD (coronary artery disease) Chronic I25.10 - ATHSCL HEART DISEASE OF [place] CORONARY ARTERY W/O ANG PCTRS Qualifiers: Coronary Disease-Associated Artery/Lesion type: [place] artery [place] vs. transplanted heart: [place] heart Associated angina: without angina Qualified Code(s): I25.10 - Atherosclerotic heart disease of [place] coronary artery without angina pectoris Comment/Plan: Continue cardiac regimen. Cardiology has been consulted. Serial troponins will be obtained. (7) GERD (gastroesophageal reflux disease) Chronic K21.9 - GASTRO-ESOPHAGEAL REFLUX DISEASE WITHOUT ESOPHAGITIS Qualifiers: Esophagitis presence: without esophagitis Qualified Code(s): K21.9 - Gastro -esophageal reflux disease without esophagitis Comment/Plan: continue ppi (8) Hyperlipemia Chronic E78.5 - HYPERLIPIDEMIA, UNSPECIFIED Qualifiers: Hyperlipidemia type: unspecified Qualified Code(s): E78.5 - Hyperlipidemia , unspecified Comment/Plan: Continue statin - Plan Continue diuresis. Cardiology following. Patient also had barium swallow this morning, results are pending, due to his nausea and dysphagia.
--- NOTE | 2016-08-11 10:11 | DIRPT ---
CLINICAL DATA: Dysphagia EXAM: ESOPHOGRAM/BARIUM SWALLOW TECHNIQUE: Single contrast examination was performed using thin barium FLUOROSCOPY TIME: Radiation Exposure Index (as provided by the fluoroscopic device): 19.4 mGy If the device does not provide the exposure index: Fluoroscopy Time: 1 minutes 24 seconds. COMPARISON: None. FINDINGS: A limited single contrast barium swallow was performed with patient in supine FAIR position on fluoroscopy table. There is delay in triggering the oral phase of swallowing mechanism with tongue pumping. Mild penetration of laryngeal vestibule. No román aspiration was noted. The esophagus shows normal distensibility. No esophageal stricture. No obstructing or constricting mass. Mild dysmotility was noted in distal esophagus with mild delay emptying. Small gastroesophageal reflux noted in distal esophagus. IMPRESSION: No esophageal stricture. No upper esophageal web. There is delay in triggering of oral phase of swallowing mechanism with tongue pumping. Penetration of laryngeal vestibule was noted without evidence of román aspiration. Mild dysmotility in distal esophagus. Small gastroesophageal reflux noted in distal esophagus. Electronically Signed By: Enrico Dean M.D. On: 08/11/2016 10:09
--- NOTE | 2016-08-11 10:59 | DIRPT ---
CLINICAL DATA: Respiratory failure. Dyspnea. EXAM: CHEST 2 VIEW COMPARISON: 08/10/2016. FINDINGS: The cardiac silhouette is borderline enlarged. Stable post CABG changes. No significant change in a moderate-sized left pleural effusion with less adjacent airspace opacity. Decreased density at the right lung base with a persistent small right pleural effusion. Stable patchy opacity in the right upper lobe. Decreased prominence of the pulmonary vasculature and interstitial markings. Diffuse osteopenia. Changes of DISH. IMPRESSION: 1. Decreased bibasilar atelectasis or pneumonia. 2. Stable probable pneumonia in the right upper lobe. 3. Stable moderate-sized left pleural effusion and mildly decreased size of a small right pleural effusion. 4. Improving changes of congestive heart failure. Electronically Signed By: Tenzin Crowell M.D. On: 08/11/2016 10:56
--- NOTE | 2016-08-11 14:48 | PCM.CARD ---
- Subjective Reason for visit: New onset diastolic heart failure Current Assessment: No New Symptoms, Edema (But less). negative: Cough, Chest Pain, Nausea, Palpitations, Shortness of Breath, Vomiting Vital Signs: Last Vital Signs Temp 98.2 F 08/11/16 08:00 Pulse 65 08/11/16 13:30 Resp 18 08/11/16 08:00 BP 146/67 08/11/16 08:00 Pulse Ox 92 08/11/16 08:00 Vital Signs Temp 98.2 F 08/11/16 08:00 Pulse 65 08/11/16 13:30 Resp 18 08/11/16 08:00 BP 146/67 08/11/16 08:00 Pulse Ox 92 08/11/16 08:00 Intake & Output 08/09/16 08/10/16 08/11/16 23:59 23:59 23:59 Intake Total 360 240 Output Total 680 1050 Balance -320 -810 Patient's weight 113 lb 4.8 oz 110 lb 8 oz Intake: IV Fluids 0 Normal Saline 1,000 ml @ 0 20 mls/hr IV Q48H [facility] Rx# :[id number] Oral 360 240 Output: Urine 680 1050 Other: Elimination Method Urinal Urinal Urine Color Yellow Yellow Stool Size Moderate Stool Description Formed [place] Wt Change in KG 3.039 kg loss 1.270 kg loss Weight Change from 6.7 lb(s) loss 2.8 lb(s) loss Previous Weight Weight (Calculated 51.392 50.122 Kilograms) Respiratory: Normal - CTA Jugular Vein Distention: None Pulse Rhythm: Regular EKG Rhythm: Sinus Rhythm EKG Ectopy: negative: Runs >10 beats Heart Sounds: S1 & S2, Murmur (1-2 of 6 systolic murmur left sternal border). negative: S3 Edema Type: Pitting (Pretibial presacral edema) Edema Degree: 2+ Lab/DI Results Reviewed: Laboratory Tests 08/10/16 08/10/16 08/10/16 12:15 16:20 18:25 Potassium Creatinine Troponin I 0.02 0.02 0.03 08/11/16 05:05 Potassium 3.8 Creatinine 1.30 H Troponin I 0.03 - Assessment/Plan (1) Heart failure Acute I50.9 - HEART FAILURE, UNSPECIFIED Present on Admission: Yes unspecified heart failure type Comment/Plan: Improved continue IV diuretic await echocardiogram. He will obviously need a maintenance diuretic at discharge in sodium restriction (2) CAD (coronary artery disease) Chronic I25.10 - ATHSCL HEART DISEASE OF [place] CORONARY ARTERY W/O ANG PCTRS Present on Admission: Yes [place] artery [place] heart without angina I25.10 - Atherosclerotic heart disease of [place] coronary artery without angina pectoris Comment/Plan: Stable, at this time I would not pursue an ischemia evaluation outside of unstable angina or acute coronary syndrome (3) Hypertensive heart disease with CHF Acute I11.0 - HYPERTENSIVE HEART DISEASE WITH HEART FAILURE Comment/Plan: Stable blood pressure target continue current meds (4) Hyperlipemia Chronic E78.5 - HYPERLIPIDEMIA, UNSPECIFIED Present on Admission: Yes unspecified E78.5 - Hyperlipidemia, unspecified Comment/Plan: Stable continue his statin
[2016-08-11] MEDS: ENOXAPARIN 30 MG/0.3 ML PFS SQ SCH (16:03)
[2016-08-11] MEDS: PRAVASTATIN 20 MG TAB PO SCH (20:44)
[2016-08-12] MEDS: SODIUM CHLORIDE 0.9% 3 ML FLUSH FLUSH SCH ×2 (05:53→17:09)
[2016-08-12] MEDS: PANTOPRAZOLE 40 MG TAB PO SCH ×2 (05:54→17:08)
[2016-08-12 06:32] LABS: MPV 8.5 fL (7.4-10.4)
[2016-08-12 06:43] LABS: BLOOD UREA NITROGEN 38 MG/DL (9-20); CALCIUM 8.4 MG/DL (8.4-10.2); CALCULATED OSMOLALITY 273 MOs/Kg (270-290); CHLORIDE 99 mEq/L (98-107); GLUCOSE 93 MG/DL (70-99); SODIUM LEVEL 137 mEq/L (137-146)
[2016-08-12] MEDS: CARVEDILOL 3.125 MG TAB PO SCH ×2 (07:29→20:17)
[2016-08-12] MEDS: ISOSORBIDE MONONITRATE 60 MG TAB PO SCH (07:29)
[2016-08-12] MEDS: LISINOPRIL 5 MG TAB PO SCH (07:29)
[2016-08-12] MEDS: FUROSEMIDE 40 MG/4 ML VIAL IV SCH (07:29)
--- NOTE | 2016-08-12 09:08 | GENMEDPROG ---
Chief Complaint: Heart failure Subjective Note: Doing well, denies any chest pain or shortness of breath. Feels like his leg swelling is down a bit. Notes Reviewed: Yes Events from last night noted and discussed with Clinical Staff Current Medication List: Reviewed Currently: Reports: Cough, [place], SOB. Denies: Sputum DVT Prophylaxis: Yes - Physical Examination Vital Signs and I&O: Last Vital Signs Temp 97.9 F 08/12/16 07:18 Pulse 68 08/12/16 07:18 Resp 18 08/12/16 07:18 BP 141/62 08/12/16 07:18 Pulse Ox 96 08/12/16 07:18 Oxygen Pulse Oxygen Saturation 96 O2 Device Room Air Oxygen Flow Rate Fraction of Inspired Oxygen ( FIO2) Intake & Output 08/10/16 08/11/16 08/12/16 08/13/16 06:59 06:59 06:59 06:59 Intake Total 360 1082 Output Total 1050 1275 140 Balance -690 -193 -140 Patient's weight 50.122 kg 51.029 kg General: Alert, No acute distress HEENT: EOMI (Sclera white) Neck: Normal Trachea alignment, Normal inspection Respiratory: Normal - CTA Cardiovascular: Regular rate, No Gallops,Rubs/Murmurs GI: Normal bowel sounds, Soft, Non tender (non distended) Extremities/Musculoskeletal: Edema (Very minimal lower extremity edema, about his ankles. Much improved from yesterday.) Lab/DI/Studies Reviewed: Laboratory Tests 08/10/16 08/11/16 08/12/16 12:15 05:05 05:45 Hgb BUN 34 H 33 H 38 H Creatinine 1.20 1.30 H 1.60 H 08/12/16 05:45 Hgb 12.8 L BUN Creatinine - Assessment (1) Dyspnea Acute R06.00 - DYSPNEA, UNSPECIFIED Qualifiers: Dyspnea type: shortness of breath Qualified Code(s): R06.02 - Shortness of breath Comment/Plan: Likely due to pulmonary edema, fluid overload related to his acute heart failure exacerbation. Treated with IV diuresis, much improved this morning. (2) Heart failure, chronic, with acute decompensation Acute I50.9 - HEART FAILURE, UNSPECIFIED Qualifiers: Heart failure type: diastolic Qualified Code(s): I50.33 - Acute on chronic diastolic (congestive) heart failure Comment/Plan: Patient has been admitted to monitor bed. Monitor weight and fluid balance. Continue salt restricted diet. Continue Imdur, patient was receiving IV Lasix 40 twice daily, now his creatinine is slightly bumping and I think he is starting to get very close to euvolemic, so will reduce IV diuretic to 20 mg twice daily. Patient is also being followed by Dr. Abrams of Cardiology, appreciate his assistance. Patient had echocardiography done yesterday, awaiting interpretation at this time. (3) Hyperlipidemia Acute E78.5 - HYPERLIPIDEMIA, UNSPECIFIED Qualifiers: Hyperlipidemia type: H (4) Hypertensive heart disease with CHF Acute I11.0 - HYPERTENSIVE HEART DISEASE WITH HEART FAILURE (5) Respiratory insufficiency Acute R06.89 - OTHER ABNORMALITIES OF BREATHING Comment/Plan: Continue supplemental O2 add as needed and nebulized bronchodilators. Monitor pulmonary status. (6) CAD (coronary artery disease) Chronic I25.10 - ATHSCL HEART DISEASE OF [place] CORONARY ARTERY W/O ANG PCTRS Qualifiers: Coronary Disease-Associated Artery/Lesion type: [place] artery [place] vs. transplanted heart: [place] heart Associated angina: without angina Qualified Code(s): I25.10 - Atherosclerotic heart disease of [place] coronary artery without angina pectoris Comment/Plan: Continue cardiac regimen. Cardiology has been consulted. Serial troponins will be obtained. (7) GERD (gastroesophageal reflux disease) Chronic K21.9 - GASTRO-ESOPHAGEAL REFLUX DISEASE WITHOUT ESOPHAGITIS Qualifiers: Esophagitis presence: without esophagitis Qualified Code(s): K21.9 - Gastro -esophageal reflux disease without esophagitis Comment/Plan: continue ppi (8) Hyperlipemia Chronic E78.5 - HYPERLIPIDEMIA, UNSPECIFIED Qualifiers: Hyperlipidemia type: unspecified Qualified Code(s): E78.5 - Hyperlipidemia , unspecified Comment/Plan: Continue statin Case Care Discussed with: Nursing Staff Total Time: 36
[2016-08-12] MEDS: FUROSEMIDE 20 MG/2 ML VIAL IV SCH ×2 (09:55→17:08)
[2016-08-12] MEDS: POTASSIUM CHLORIDE 20 MEQ TAB PO SCH (12:05)
[2016-08-12] MEDS: VITAMINS, MULTIPLE CAP PO SCH (12:05)
[2016-08-12] MEDS: FERROUS SULFATE 324 MG TAB PO SCH (12:05)
--- NOTE | 2016-08-12 12:20 | PCM.CARD ---
- Subjective Reason for visit: For heart failure Current Assessment: No New Symptoms (Resting comfortably). negative: Chest Pain , Orthopnea, Palpitations, Shortness of Breath Vital Signs: Last Vital Signs Temp 97.3 F L 08/12/16 11:32 Pulse 61 08/12/16 11:32 Resp 16 08/12/16 11:32 BP 123/54 L 08/12/16 11:32 Pulse Ox 94 08/12/16 11:32 Vital Signs Temp 97.3 F L 08/12/16 11:32 Pulse 61 08/12/16 11:32 Resp 16 08/12/16 11:32 BP 123/54 L 08/12/16 11:32 Pulse Ox 94 08/12/16 11:32 Intake & Output 08/10/16 08/11/16 08/12/16 23:59 23:59 23:59 Intake Total 360 778 514 Output Total 680 1575 490 Balance -320 -797 24 Patient's weight 113 lb 4.8 oz 110 lb 8 oz 112 lb 8 oz Intake: IV Fluids 0 298 184 Normal Saline 1,000 ml @ 0 20 mls/hr IV Q48H [facility] Rx# :[id number] Right Inner Forearm 205 Right Inner Inner Forearm 93 184 Oral 360 480 330 Output: Urine 680 1575 490 Other: Elimination Method Urinal Urinal Urinal Number of Unmeasured 1 Voids Urine Color Yellow Yellow Yellow Stool Size Moderate Stool Description Soft Formed Loose Brown Wt Change in KG 3.039 kg loss 1.270 kg loss 0.907 kg gained Weight Change from 6.7 lb(s) loss 2.8 lb(s) loss 2.0 lb(s) gained Previous Weight Weight (Calculated 51.392 50.122 51.029 Kilograms) PE: Appears very frail and chronically ill Respiratory: Normal - CTA Jugular Vein Distention: None Pulse Rhythm: Regular EKG Rhythm: Sinus Rhythm Heart Sounds: Murmur (Apical murmur 2 6 MR grade 1 2 6 aortic outflow murmur I cannot auscultate AR today). negative: S3 Edema Degree: 1+ Edema Skin Appearance: Boggy (Improved lower extremity edema) Lab/DI Results Reviewed: Laboratory Tests 08/10/16 08/12/16 08/12/16 18:25 05:45 05:45 Hgb 12.8 L Hct 37.9 L Potassium 3.6 Creatinine 1.60 H Ilf-P-Wlljqwfeuuq Pept 42815 H 08/12/16 05:45 Hgb Hct Potassium Creatinine Yun-T-Mnopaltwatr Pept 6880 H - Assessment/Plan (1) Heart failure Acute I50.9 - HEART FAILURE, UNSPECIFIED Present on Admission: Yes unspecified heart failure type H Comment/Plan: Improved agree with decreased dose of diuretic with CKD and likely to transition to oral diuretic tomorrow as he is improved and we may not be able to clear all of his peripheral edema with the severity of his left ventricular dysfunction and CKD. Ejection fraction is 35-40% he is an guideline directed medical therapy with loop diuretic beta-nighat FARA-inhibitor and I would hold on spironolactone with CKD and we can reassess as an outpatient whether would be safe for him. I would not raise the issue of an ICD with his age frailty and comorbidities. (2) CAD (coronary artery disease) Chronic I25.10 - ATHSCL HEART DISEASE OF [place] CORONARY ARTERY W/O ANG PCTRS Present on Admission: Yes [place] artery [place] heart without angina I25.10 - Atherosclerotic heart disease of [place] coronary artery without angina pectoris Comment/Plan: Stable continue medical therapy he is not having acute coronary syndrome (3) Hypertensive heart disease with CHF Acute I11.0 - HYPERTENSIVE HEART DISEASE WITH HEART FAILURE Comment/Plan: Stable continue current treatment (4) Hyperlipemia Chronic E78.5 - HYPERLIPIDEMIA, UNSPECIFIED Present on Admission: Yes unspecified E78.5 - Hyperlipidemia, unspecified Comment/Plan: Stable continue his statin (5) Valvular disease Chronic Present on Admission: Yes Comment/Plan: , AR and MR not severe and treatment is generally that of his congestive heart failure which is guideline directed and improved.
[2016-08-12] MEDS: NS 1,000 ML IV SCH (17:08)
[2016-08-12] MEDS: ENOXAPARIN 30 MG/0.3 ML PFS SQ SCH (17:08)
[2016-08-12] MEDS: PRAVASTATIN 20 MG TAB PO SCH (20:18)
[2016-08-13 04:28] VITALS: BMI 18.6
[2016-08-13 05:15] LABS: MPV 8.2 fL (7.4-10.4)
[2016-08-13] MEDS: SODIUM CHLORIDE 0.9% 3 ML FLUSH FLUSH SCH (05:26)
[2016-08-13] MEDS: NS 1,000 ML IV SCH (05:26)
[2016-08-13] MEDS: PANTOPRAZOLE 40 MG TAB PO SCH (05:26)
[2016-08-13 05:35] LABS: BLOOD UREA NITROGEN 43 MG/DL (9-20); CALCIUM 8.3 MG/DL (8.4-10.2); CALCULATED OSMOLALITY 273 MOs/Kg (270-290); CHLORIDE 99 mEq/L (98-107); GLUCOSE 94 MG/DL (70-99); SODIUM LEVEL 136 mEq/L (137-146)
[2016-08-13] MEDS: FUROSEMIDE 20 MG/2 ML VIAL IV SCH (09:13)
[2016-08-13] MEDS: ISOSORBIDE MONONITRATE 60 MG TAB PO SCH (09:14)
[2016-08-13] MEDS: FERROUS SULFATE 324 MG TAB PO SCH (09:14)
[2016-08-13] MEDS: VITAMINS, MULTIPLE CAP PO SCH (09:14)
[2016-08-13] MEDS: LISINOPRIL 5 MG TAB PO SCH (09:14)
[2016-08-13] MEDS: CARVEDILOL 3.125 MG TAB PO SCH (09:15)
[2016-08-13] MEDS: POTASSIUM CHLORIDE 20 MEQ TAB PO SCH (09:15)
--- NOTE | 2016-08-13 09:55 | PCM.DCS92 ---
- Final/Secondary Discharge Diagnosis (1) Dyspnea Acute R06.00 - DYSPNEA, UNSPECIFIED shortness of breath R06.02 - Shortness of breath Comment: Likely due to pulmonary edema, fluid overload related to his acute heart failure exacerbation. Treated with IV diuresis, much improved this morning, without any significant shortness of breath, he has some slight lower extremity pulmonary edema. Discussed at length with Dr. Abrams this morning, while he still has some slight edema, may not be worth pushing for further diuresis given the patient's age, frailty and chronic kidney disease. (2) Heart failure, chronic, with acute decompensation Acute I50.9 - HEART FAILURE, UNSPECIFIED Present on Admission: Yes diastolic I50.33 - Acute on chronic diastolic (congestive) heart failure Comment: Patient has been admitted to monitor bed. Monitor weight and fluid balance. Continue salt restricted diet. Continue Imdur, patient was receiving IV Lasix 40 twice daily, now his creatinine is slightly bumping and I think he is starting to get very close to euvolemic, so will reduce IV diuretic to 20 mg twice daily. Patient is also being followed by Dr. Abrams of Cardiology, appreciate his assistance. Patient had echocardiography done during this hospital stay as well. He will be discharged today on moderate dose oral Lasix. He will have close cardiology follow-up. (3) Hyperlipidemia Acute E78.5 - HYPERLIPIDEMIA, UNSPECIFIED H (4) Hypertensive heart disease with CHF Acute I11.0 - HYPERTENSIVE HEART DISEASE WITH HEART FAILURE (5) Respiratory insufficiency Acute R06.89 - OTHER ABNORMALITIES OF BREATHING Present on Admission: Yes Comment: Continue supplemental O2 add as needed and nebulized bronchodilators. Monitor pulmonary status. (6) CAD (coronary artery disease) Chronic I25.10 - ATHSCL HEART DISEASE OF [place] CORONARY ARTERY W/O ANG PCTRS Present on Admission: Yes [place] artery [place] heart without angina I25.10 - Atherosclerotic heart disease of [place] coronary artery without angina pectoris Comment: Continue cardiac regimen. Cardiology has been consulted. Serial troponins will be obtained. (7) GERD (gastroesophageal reflux disease) Chronic K21.9 - GASTRO-ESOPHAGEAL REFLUX DISEASE WITHOUT ESOPHAGITIS Present on Admission: Yes without esophagitis K21.9 - Gastro-esophageal reflux disease without esophagitis Comment: continue ppi (8) Hyperlipemia Chronic E78.5 - HYPERLIPIDEMIA, UNSPECIFIED Present on Admission: Yes unspecified E78.5 - Hyperlipidemia, unspecified Comment: Continue statin Discharge Disposition: Assisted Living Facility Discharge Condition: Fair Cognitive Discharge Status: Unimpaired Fuctional Discharge Status: Independent Physician Follow up/Referrals: None,No Provider [Primary Care Provider] - F/U Facility Physician Home Medications / New Prescriptions: New Carvedilol [Coreg] 3.125 mg PO BID #60 tablet Furosemide [Lasix] 40 mg PO DAILY #30 tablet Lisinopril [Zestril] 5 mg PO DAILY #30 tablet POTASSIUM CHLORIDE Tablet [K-DUR 20 mEq Tablet*] 20 meq PO DAILY@1200 #30 tab.er.prt Continue Nitroglycerin [Nitrostat] 0.4 mg SL Q5M PRN PRN Reason: Chest Pain Or Discomfort Aspirin [Aspirin EC] 81 mg PO HS Guaifenesin [Robitussin] 10 ml PO .[id number] PRN PRN Reason: Cough Magnesium Hydroxide [Milk of Magnesia] 30 ml PO DAILY PRN PRN Reason: Constipation Acetaminophen Ex Str Tablet [TYLENOL EXTRA STRENGTH Tablet] 1,000 mg PO Q4H PRN PRN Reason: RENEE/MINOR PAIN Pravastatin [Pravachol] 20 mg PO HS Magnesium Hydroxide/Al Hydrox [Mylanta Liquid] 30 ml PO QID PRN PRN Reason: Heartburn Or Indigestion Pantoprazole Sodium [Protonix] 40 mg PO MOWEFR Melatonin/Pyridoxine [Melatonin 3 mg Tablet] 1 each PO HS Isosorbide Mononitrate [Isosorbide Mononitrate ER] 60 mg PO QAM Fluoxetine HCl [Prozac] 20 mg PO HS Multivitamin [Multiple Vitamins] 1 each PO QAM Ferrous Sulfate [Feosol] 325 mg PO QAM Neomy Sulf/Bacitrac Zn/Poly [Triple Antibiotic Ointment] 28 gm TOP Q12H PRN PRN Reason: SKIN ABRASIONS/SKIN TEARS Discontinued Loperamide HCl [Imodium A-D] 2 mg PO DIR PRN PRN Reason: LOOSE STOOL Cetirizine HCl [Zyrtec] 10 mg PO .[id number] O2 Device: Room Air Diet at Discharge: Cardiac (Low salt), Low Salt Activity: No Restrictions Call Office For: Worsening Symptoms, Fever over 101 F - DC Summary Notes HPI/Notes: This is a pleasant 85-year-old male who was admitted to the hospital with shortness of breath and fluid overload, diagnosed with diastolic heart failure. He was treated with IV diuresis and started on appropriate evidence based medications and interventions. He is now near euvolemic, his chronic kidney disease is slightly exacerbated due to the aggressive IV diuresis. In discussion with Cardiology, the patient will be discharged today on his appropriate medications. He will have close Cardiology follow-up, and will need education and close monitoring to make sure he adheres to a low-salt intake diet at his assisted living facility. Patient is feeling well today, has no acute complaints and is agreeable to discharge. I will discuss the patient is discharged today with the patient's daughter as well, as the patient has some baseline dementia and confusion. Please see the hospital problems and discharge problems above for details of the hospital course including diagnostics and treatment. The plan of care including medications, prognosis, follow-up including alarm symptoms for which medical care should be sought were reviewed with the patient and any available family members/caretakers. The patient is agreeable to discharge today, and all questions were answered by me to their satisfaction. Hospital Course Note:: Discharge summary on patient named HELIO GILL admitted to [facility] on 08/10/16 by Drew Barone MD. Date of discharge is []. Total Time: 42 - Physical Exam Vital Signs: Last Vital Signs Temp 97.9 F 08/13/16 08:00 Pulse 62 08/13/16 08:00 Resp 18 08/13/16 08:00 BP 129/63 08/13/16 08:00 Pulse Ox 98 08/13/16 08:00 Oxygen Pulse Oxygen Saturation 98 O2 Device Room Air Oxygen Flow Rate Fraction of Inspired Oxygen ( FIO2) Constitutional: No apparent distress, Alert, [place] Oriented to: Time, Person, Place - HEENT Head: Normal Eye: Normal Oropharynx: Normal ENT EAC: Normal TMJ: Normal Nose: No Symptoms Reported - Respiratory/Cardiovascular Respiratory: Normal - CTA Cardiovascular: Normal (RRR , Normal S1, S2. No murmurs, rubs, or gallops. PMI non-displaced. Carotids: no carotid bruits. No bradycardia or tachycardia. DP pulses 2+ bilaterally.) - GI Auscultation: Normal Palpation: Normal Tenderness: Non tender Rectal Exam: Deferred - Musculoskeletal Back: Other Extremities: Edema (He has some trace bilateral lower extremity edema primarily around the ankles.) - Integumentary Lymphatics: Normal - Neurologic Memory Impaired: Short-term Cerebellar: Ataxia Mood Description: Anxious Thought: Coherent Perception: Normal
[2016-08-13 11:00] VITALS: BP 108/61; PULSE 66; TEMP 97.7
--- NOTE | 2016-08-13 11:34 | PCM.CARD ---
- Subjective Reason for visit: For heart failure Current Assessment: No New Symptoms. negative: Chest Pain, Edema, Nausea, Palpitations, Shortness of Breath, Vomiting Vital Signs: Last Vital Signs Temp 97.7 F 08/13/16 11:14 Pulse 66 08/13/16 11:14 Resp 18 08/13/16 11:14 BP 108/61 08/13/16 11:14 Pulse Ox 95 08/13/16 10:57 PE: He is very bright and alert today off oxygen no shortness of breath although he is sedentary in the bed. Respiratory: Normal - CTA. negative: Rales, Wheezes Jugular Vein Distention: None Pulse Rhythm: Regular EKG Rhythm: Sinus Rhythm EKG Ectopy: negative: Runs >10 beats Heart Sounds: S1 & S2, Murmur (Two of 6 murmur of MR 1 of 6 I cannot auscultate AR He has no edema today). negative: S3 - Assessment/Plan (1) Heart failure Acute I50.9 - HEART FAILURE, UNSPECIFIED Present on Admission: Yes systolic acute I50.21 - Acute systolic (congestive) heart failure Comment/Plan: EF in the range of 35-40% secondary to valvular and coronary artery disease. His heart failure is nicely compensated need a maintenance diuretic and follow up BMP in about 1 week at a group home facility. Continue guideline directed medical therapy including beta-nighat and Last at this time I would not give him spironolactone with his CKD and can be readdressed as an outpatient. (2) CAD (coronary artery disease) Chronic I25.10 - ATHSCL HEART DISEASE OF [place] CORONARY ARTERY W/O ANG PCTRS Present on Admission: Yes [place] artery [place] heart without angina I25.10 - Atherosclerotic heart disease of [place] coronary artery without angina pectoris Comment/Plan: Stable continue current treatment including aspirin and statin (3) Hypertensive heart disease with CHF Acute I11.0 - HYPERTENSIVE HEART DISEASE WITH HEART FAILURE Comment/Plan: Stable continue current treatment including Last with CAD (4) Hyperlipemia Chronic E78.5 - HYPERLIPIDEMIA, UNSPECIFIED Present on Admission: Yes unspecified E78.5 - Hyperlipidemia, unspecified Comment/Plan: Stable continue low intensity statin with age CKD and frailty giving a increased risk of muscular toxicity. 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
== END 2016-08-13 14:05 | disposition home health service (06) | DRG 291 ==
LOC: ED 12:04 → PCU 15:58
PROVIDERS: ADMIT Internal Medicine; ATTEND Internal Medicine
DX: I13.0 Hypertensive heart and chronic kidney disease with heart failure and stage 1 through stage 4 chronic kidney disease, or unspecified chronic kidney disease (principal); I50.33 Acute on chronic diastolic (congestive) heart failure; I25.810 Atherosclerosis of coronary artery bypass graft(s) without angina pectoris; Z95.1 Presence of aortocoronary bypass graft; F03.90 Unspecified dementia, unspecified severity, without behavioral disturbance, psychotic disturbance, mood disturbance, and anxiety; E78.5 Hyperlipidemia, unspecified; K21.9 Gastro-esophageal reflux disease without esophagitis; N18.9 Chronic kidney disease, unspecified; E78.00 Pure hypercholesterolemia, unspecified; F41.8 Other specified anxiety disorders; Z79.82 Long term (current) use of aspirin; Z79.899 Other long term (current) drug therapy; R13.12 Dysphagia, oropharyngeal phase; I25.2 Old myocardial infarction
CPT/HCPCS: 36415; 71010; 71020; 74220; 80048; 80053; 81001; 83735; 83880; 84443; 84484; 85025; 85027; 85610; 85730; 87086; 93005; 93306; 94640; 96372; 96374; 99284; G0237; J1650; J1940; J3490; J7620

== ENCOUNTER 2016-08-24 12:19 | Inpatient (IN) | payer MEDICARE, OTHER ==
[2016-08-24 14:10] LABS: AUTOMATED EOSINOPHIL 5.2 % (0-5); AUTOMATED LYMPH 16.4 % (17-44); AUTOMATED MONOCYTE 8.2 % (3-10); AUTOMATED NEUTROPHIL 69.2 % (45-76); MPV 7.7 fL (7.4-10.4)
[2016-08-24 14:14] LABS: RBC/URINE 0-2 (0-2)
[2016-08-24 14:15] LABS: LEUKOCYTES/URINE NEG (NEGATIVE); NITRITE/URINE NEG (NEGATIVE); URINE OCCULT BLOOD NEG (NEG/TRACE)
[2016-08-24 14:25] LABS: CALC CORRECTED 9.1 MG/DL (8.4-10.2); CALCIUM 8.2 MG/DL (8.4-10.2); CREATININE 1.4 MG/DL (0.66-1.25); TOTAL PROTEIN 6.4 G/DL (6.3-8.2)
[2016-08-24 14:27] LABS: PARTIAL THROMB. TIME 29.2 SEC (22-35); PT-INR 1.2
--- NOTE | 2016-08-24 15:11 | EDPRACDOC ---
- General Information Chief Complaint: Back Injury Stated Complaint: BACK PAIN Time Seen by Provider: 08/24/16 13:26 Information Source: Patient Mode Of Arrival: Ambulance Home Medications: Home Medications Aspirin [Aspirin EC] 81 mg PO HS 03/18/13 Nitroglycerin [Nitrostat] 0.4 mg SL Q5M PRN 03/18/13 Acetaminophen Ex Str Tablet [TYLENOL EXTRA STRENGTH Tablet] 1,000 mg PO Q4H PRN 08/10/16 Ferrous Sulfate [Feosol] 325 mg PO QAM 08/10/16 Guaifenesin [Robitussin] 10 ml PO .[id number] PRN 08/10/16 Isosorbide Mononitrate [Isosorbide Mononitrate ER] 60 mg PO QAM 08/10/16 Magnesium Hydroxide [Milk of Magnesia] 30 ml PO DAILY PRN 08/10/16 Magnesium Hydroxide/Al Hydrox [Mylanta Liquid] 30 ml PO QID PRN 08/10/16 Melatonin/Pyridoxine [Melatonin 3 mg Tablet] 1 each PO HS 08/10/16 Multivitamin [Multiple Vitamins] 1 each PO QAM 08/10/16 Neomy Sulf/Bacitrac Zn/Poly [Triple Antibiotic Ointment] 28 gm TOP Q12H PRN Pantoprazole Sodium [Protonix] 40 mg PO MOWEFR 08/10/16 Pravastatin [Pravachol] 20 mg PO HS 08/10/16 Carvedilol [Coreg] 3.125 mg PO BID #60 tablet 08/13/16 POTASSIUM CHLORIDE Tablet [K-DUR 20 mEq Tablet*] 20 meq PO DAILY@1200 #30 tab.er.prt 08/13/16 Ensure [Ensure Plus (Chocolate)] 240 ml PO BID 08/24/16 Furosemide [Lasix] 40 mg PO 0800 08/24/16 Hydrocortisone/Aloe Vera [Hydrocortisone-Aloe 0.5% Cream] 28.4 gm TOP Q6H PRN Lisinopril [Zestril] 5 mg PO 0800 08/24/16 Loperamide HCl [Anti-Diarrheal] 2 mg PO DIR PRN 08/24/16 Mirtazapine 7.5 mg PO 199908/24/16 Allergies/Adverse Reactions: Allergies Allergy/AdvReac Type Severity Reaction Status Date / Time No Known Allergies Allergy Verified 08/24/16 12:58 - History of Present Illness Onset: 3 days HPI: WEAKNESS, MULTIPLE FALLS THE PAST SEVERAL DAYS. THIS USE OCCURS WHEN HE GETS UP AND WALKS AROUND. PAIN MIDDLE LUMBAR AREA AGGRAVATED BY MOVEMENT ALLEVIATED BY CERTAIN POSITIONS. NO BOWEL BLADDER INCONTINENCE RETENTION OR SADDLE ANESTHESIA. 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 Denies: Depression, Substance Use Disorder Systemic History: Reports: Anemia Surgical History: Reports: CABG ( vessels), Hernia Surgery, Other (stent x 2 , hernia,) - Family Medical History Reports: Diabetes - Social Medical History Smoking Status: Never smoker Social History: Denies: Substance Use Disorder ETOH: None Substance Abuse: None Lives With: Other Lives In: Assisted Living EDM Review of Systems - Review of Systems ROS Negative Except as Marked: Yes All systems reviewed and were negative except as marked - Physical Exam Constitutional: No apparent distress, Alert, Cachectic Oriented to: Time, Person, Place Last recorded Vital Signs: Last Vital Signs Temp 98.1 F 08/24/16 12:41 Pulse 81 08/24/16 14:07 Resp 18 08/24/16 12:41 BP 133/60 08/24/16 14:07 Pulse Ox 94 08/24/16 14:07 Oxygen Pulse Oxygen Saturation 94 O2 Device Oxygen Flow Rate Fraction of Inspired Oxygen ( FIO2) - HEENT Head: Normal Neck: Normal. negative: Edema - Respiratory/Cardiovascular Respiratory: Diminished, Rales, Rhonchi Cardiovascular: Normal - GI Auscultation: Normal Palpation: Normal Tenderness: Non tender - Musculoskeletal Back: Normal, Lumbar TTP. negative: Abrasion, Ecchymosis, Laceration, CVA Tenderness, Thoracic Step-off, Lumbar Step-off, Thoracic TTP Extremities: Normal. negative: Pedal Edema - Integumentary Skin: Normal, Warm, Dry - Neurologic Motor Function: Normal Mood Description: Normal Thought: Coherent - Results 08/24/16 14:05 08/24/16 14:05 WBC 8.8 xk/uL (3.8-10.8) 08/24/16 14:05 RBC 3.92 xM/uL (4.70-6.10) L 08/24/16 14:05 Hgb 12.1 g/dL (14.0-18.0) L 08/24/16 14:05 Hct 35.6 % (42-52) L 08/24/16 14:05 MCV 91 fL (80-94) 08/24/16 14:05 MCH 30.9 pg (27-32) 08/24/16 14:05 MCHC 34.1 g/dl (33-36) 08/24/16 14:05 RDW 14.9 % (11.5-14.5) H 08/24/16 14:05 Plt Count 175 xk/uL (130-400) 08/24/16 14:05 MPV 7.7 fL (7.4-10.4) 08/24/16 14:05 Neut % (Auto) 69.2 % (45-76) 08/24/16 14:05 Lymph % (Auto) 16.4 % (17-44) L 08/24/16 14:05 [place] % (Auto) 8.2 % (3-10) 08/24/16 14:05 Eos % (Auto) 5.2 % (0-5) H 08/24/16 14:05 Baso % (Auto) 1.0 % (0-2) 08/24/16 14:05 Absolute Neuts (auto) 6.07 xk/uL (1.7-8.2) 08/24/16 14:05 Absolute Lymphs (auto) 1.41 xk/uL (0.65-4.75) 08/24/16 14:05 PT 12.7 SEC (9.2-11.2) H 08/24/16 14:05 INR 1.2 08/24/16 14:05 APTT 29.2 SEC (22-35) 08/24/16 14:05 Sodium 137 mEq/L (137-146) 08/24/16 14:05 Potassium 4.4 mEq/L (3.5-5.1) 08/24/16 14:05 Chloride 105 mEq/L (98-107) 08/24/16 14:05 Carbon Dioxide 26 mMOL/L (22-33) 08/24/16 14:05 Anion Gap 10 mEq/L (8-16) 08/24/16 14:05 BUN 28 MG/DL (9-20) H 08/24/16 14:05 Creatinine 1.40 MG/DL (0.66-1.25) H 08/24/16 14:05 Estimated GFR (MDRD) 48 mL/min (>=60) L 08/24/16 14:05 Glucose 100 MG/DL (70-99) H 08/24/16 14:05 Calculated Osmolality 270 MOs/Kg (270-290) 08/24/16 14:05 Calcium 8.2 MG/DL (8.4-10.2) L 08/24/16 14:05 Corrected Calcium 9.1 MG/DL (8.4-10.2) 08/24/16 14:05 Total Bilirubin 0.9 MG/DL (0.2-1.3) 08/24/16 14:05 AST 30 IU/L (17-59) 08/24/16 14:05 ALT 39 IU/L (21-72) 08/24/16 14:05 Alkaline Phosphatase 70 IU/L (50-160) 08/24/16 14:05 Troponin I 0.37 ng/mL (<.04) 08/24/16 14:05 Atb-[id number] Pept 10218 pg/mL (0-1800) H 08/24/16 14:05 Total Protein 6.4 G/DL (6.3-8.2) 08/24/16 14:05 Albumin 3.1 G/DL (3.5-5.0) L 08/24/16 14:05 Urine Color Pale yell0w 08/24/16 13:35 Urine Clarity Clear 08/24/16 13:35 Urine pH 6.0 (5.0-8.0) 08/24/16 13:35 Ur Specific [place] 1.010 (1.003-1.035) 08/24/16 13:35 Urine Protein Neg (NEG/TRACE) 08/24/16 13:35 Urine Glucose (UA) Neg (NEGATIVE) 08/24/16 13:35 Urine Ketones Neg (NEGATIVE) 08/24/16 13:35 Urine Occult Blood Neg (NEG/TRACE) 08/24/16 13:35 Urine Nitrite Neg (NEGATIVE) 08/24/16 13:35 Urine Bilirubin Neg (NEGATIVE) 08/24/16 13:35 Urine Urobilinogen 0.2 MG/DL (0-1) 08/24/16 13:35 Ur Leukocyte Esterase Neg (NEGATIVE) 08/24/16 13:35 Urine RBC 0-2 (0-2) 08/24/16 13:35 Ur Epithelial Cells Occ 08/24/16 13:35 Urine Bacteria Few (NEG/FEW) 08/24/16 13:35 Hyaline Casts 0-2 (0-2) 08/24/16 13:35 Urine Mucus Occ (NEG/OCC) 08/24/16 13:35 Lab Results 08/24/16 08/24/16 08/24/16 14:05 14:05 14:05 WBC 8.8 RBC 3.92 L Hgb 12.1 L Hct 35.6 L MCV 91 MCH 30.9 MCHC 34.1 RDW 14.9 H Plt Count 175 MPV 7.7 Neut % (Auto) 69.2 Lymph % (Auto) 16.4 L [place] % (Auto) 8.2 Eos % (Auto) 5.2 H Baso % (Auto) 1.0 Absolute Neuts (auto) 6.07 Absolute Lymphs (auto) 1.41 PT 12.7 H INR 1.2 APTT 29.2 Sodium 137 Potassium 4.4 Chloride 105 Carbon Dioxide 26 Anion Gap 10 BUN 28 H Creatinine 1.40 H Estimated GFR (MDRD) 48 L Glucose 100 H Calculated Osmolality 270 Calcium 8.2 L Corrected Calcium 9.1 Total Bilirubin 0.9 AST 30 ALT 39 Alkaline Phosphatase 70 Troponin I 0.37 Qes-Q-Iamcankqwos Pept 55296 H Total Protein 6.4 Albumin 3.1 L Urine Color Urine Clarity Urine pH Ur Specific [place] Urine Protein Urine Glucose (UA) Urine Ketones Urine Occult Blood Urine Nitrite Urine Bilirubin Urine Urobilinogen Ur Leukocyte Esterase Urine RBC Ur Epithelial Cells Urine Bacteria Hyaline Casts Urine Mucus 08/24/16 13:35 WBC RBC Hgb Hct MCV MCH MCHC RDW Plt Count MPV Neut % (Auto) Lymph % (Auto) [place] % (Auto) Eos % (Auto) Baso % (Auto) Absolute Neuts (auto) Absolute Lymphs (auto) PT INR APTT Sodium Potassium Chloride Carbon Dioxide Anion Gap BUN Creatinine Estimated GFR (MDRD) Glucose Calculated Osmolality Calcium Corrected Calcium Total Bilirubin AST ALT Alkaline Phosphatase Troponin I Mji-H-Cofcvguijpa Pept Total Protein Albumin Urine Color Pale yell0w Urine Clarity Clear Urine pH 6.0 Ur Specific [place] 1.010 Urine Protein Neg Urine Glucose (UA) Neg Urine Ketones Neg Urine Occult Blood Neg Urine Nitrite Neg Urine Bilirubin Neg Urine Urobilinogen 0.2 Ur Leukocyte Esterase Neg Urine RBC 0-2 Ur Epithelial Cells Occ Urine Bacteria Few Hyaline Casts 0-2 Urine Mucus Occ - EKG EKG #1 EKG Time: 13:53 -: Yes EKG interpreted by me Rate: bpm: 73 [place]: Normal Rhythm: NSR Block: None Hypertrophy: None ST: Ant, Ischemia Comments: PROLONGED QT Comparison: 08/10/16 (SOME CHANGE) - Departure Disposition: Admit IP To This Hospital Condition: Stable Final Diagnosis: ACS (acute coronary syndrome), Acute decompensated heart failure Instructions: *Heart Failure (Activity, Diet, Worsening Symptoms, Weight Monitoring)(ED) Referrals: Les Montilla MD [Primary Care Provider] - One Week Prescriptions: No Action Nitroglycerin [Nitrostat] 0.4 mg SL Q5M PRN PRN Reason: Chest Pain Or Discomfort Aspirin [Aspirin EC] 81 mg PO HS Guaifenesin [Robitussin] 10 ml PO .[id number] PRN PRN Reason: Cough Magnesium Hydroxide [Milk of Magnesia] 30 ml PO DAILY PRN PRN Reason: Constipation Acetaminophen Ex Str Tablet [TYLENOL EXTRA STRENGTH Tablet] 1,000 mg PO Q4H PRN PRN Reason: RENEE/MINOR PAIN Pravastatin [Pravachol] 20 mg PO HS Magnesium Hydroxide/Al Hydrox [Mylanta Liquid] 30 ml PO QID PRN PRN Reason: Heartburn Or Indigestion Pantoprazole Sodium [Protonix] 40 mg PO MOWEFR Melatonin/Pyridoxine [Melatonin 3 mg Tablet] 1 each PO HS Isosorbide Mononitrate [Isosorbide Mononitrate ER] 60 mg PO QAM Multivitamin [Multiple Vitamins] 1 each PO QAM Ferrous Sulfate [Feosol] 325 mg PO QAM Neomy Sulf/Bacitrac Zn/Poly [Triple Antibiotic Ointment] 28 gm TOP Q12H PRN PRN Reason: SKIN ABRASIONS/SKIN TEARS Carvedilol [Coreg] 3.125 mg PO BID #60 tablet POTASSIUM CHLORIDE Tablet [K-DUR 20 mEq Tablet*] 20 meq PO DAILY@1200 #30 tab.er.prt Loperamide HCl [Anti-Diarrheal] 2 mg PO DIR PRN PRN Reason: LOOSE STOOL Mirtazapine 7.5 mg PO 2000 Lisinopril [Zestril] 5 mg PO 0800 Furosemide [Lasix] 40 mg PO 0800 Ensure [Ensure Plus (Chocolate)] 240 ml PO BID Hydrocortisone/Aloe Vera [Hydrocortisone-Aloe 0.5% Cream] 28.4 gm TOP Q6H PRN PRN Reason: ITCH/RASH Decision to Admit Time: 15:35 Decision to admit date: 08/24/16 Decision to admit: from ED - Physician Consulted Hospitalist Time Called: 15:27 Provider Called: Levi Mack Time [employer] Snipping 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
--- NOTE | 2016-08-24 15:17 | DIRPT ---
CLINICAL DATA: Shortness of breath. Fall x2 over the last 2 days. Complaining of lower back pain. History of compression fracture in spine from years ago. EXAM: CHEST 2 VIEW COMPARISON: Chest x-rays dated 08/11/2016 and 04/18/2009. FINDINGS: Stable opacity at the left lung base, presumably pleural effusion. Significantly improved aeration within the right upper lobe, indicating resolving pneumonia. No new lung abnormality. Cardiomediastinal silhouette is stable in size and configuration. Patient is status post median sternotomy for presumed CABG. Sternotomy wires appear intact and stable in alignment. Stable compression fracture deformities are seen within the thoracic and upper lumbar spine. 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 No acute osseous abnormality appreciated. IMPRESSION: 1. Significantly improved aeration within the right upper lobe, consistent with a resolving pneumonia. 2. Stable moderate-sized left pleural effusion. 3. No new lung findings. 4. Stable old compression fracture deformities within the thoracic and upper lumbar spine. No acute osseous abnormality appreciated. Electronically Signed By: Favio Nunez M.D. On: 08/24/2016 15:15
--- NOTE | 2016-08-24 15:21 | DIRPT ---
CLINICAL DATA: Fell 2 days ago. Back pain. EXAM: LUMBAR SPINE - COMPLETE 4+ VIEW COMPARISON: Lumbar spine series 8 11/12/2012. FINDINGS: There is a remote compression fracture of the L2 vertebral body which has significantly progressed since the prior x-rays. It has a vertebral plana appearance. No other compression fractures are identified. There are moderate degenerative changes most notably involving the facet joints but no definite pars defects. The visualized bony pelvis is intact. Both hips are normally located. No obvious pelvic fracture. IMPRESSION: Vertebral plana appearance of L2 is likely progressive compression since the prior x-rays. Degenerative disc disease and facet disease but no definite acute fractures. Electronically Signed By: Livan Meneses M.D. On: 08/24/2016 15:18
[2016-08-24] MEDS ORDERED: FUROSEMIDE 40 MG/4 ML VIAL IV ONE (15:26)
[2016-08-24] MEDS ORDERED: NITROGLYCERINE 2 % OINTMENT PACK TOP ONE (15:26)
[2016-08-24] MEDS ORDERED: ENOXAPARIN 60 MG/0.6 ML PFS SQ ONE (15:30)
[2016-08-24] MEDS ORDERED: MAGNESIUM HYDROXIDE 30 ML BOTTLE PO PRN (16:35)
[2016-08-24] MEDS ORDERED: Aluminum;Magnesium;Simethicone 30 ML UDC PO PRN (16:35)
[2016-08-24] MEDS ORDERED: NITROGLYCERINE 0.4 MG TAB SL PRN (16:35)
[2016-08-24] MEDS ORDERED: HYDROCORTISONE 1% CREAM 30 GM TUBE TOP PRN (16:35)
[2016-08-24] MEDS ORDERED: GUAIFENESIN 200 MG/10 ML UDC PO PRN (16:35)
--- NOTE | 2016-08-24 16:35 | HISTPHYS ---
- Chief Complaint pt reports falling this past weekend a couple of times this past weekend and again this am. pt reports lower back pain and left hip pain, no LOC, pt does not use ambulatory aids, swelling in feet is a little greater than usual,hossein hose in place, pt reports tripping over something in the dark this am, and getting tangled up in the BR the time before. - History of Present Illness Unfortunate 85-year-old gentleman who was in very good state of health until his became ill in April. After that he suffered several bouts of congestive heart failure. He was admitted into the hospital and discharged on the 11 of August of this year. Since discharge he has been sleeping all the time. He has not been acting himself. He has a very poor appetite and came in today due to frequent falls. Laboratory evaluation reveals a chest x-ray consistent with congestive heart failure although improved from discharge, lower extremity bilateral ankle edema and rales on examination. His BNP is markedly elevated at 19,800 thousand eight hundred almost twice his previous highest BNP. His children are trying very hard to keep the patient and his together at [place]. Given his current condition the patient will be admitted into the hospital for further evaluation and management of decompensated congestive heart failure. - Medical History Cardiac History: Reports: Coronary Artery Disease, Hypertension, Congestive Heart Failure (Most recent admission in July of 2016), Heart Attack, CABG ( 1996. 4 vessels), Hypercholesterolemia, Valvular Heart Disease Respiratory History: Reports: COPD GI/ History: Reports: Renal Disease, Gastroesophageal Reflux, Ulcer Systemic History: Reports: Anemia Neurological History: Reports: Dementia Psychological History: Reports: Anxiety. Denies: Depression, Substance Use Disorder - Surgical History Reports: CABG (1996. 4 vessels), Hernia Surgery, Other (stent x 2 , hernia,) - Medictions/Allergies Allergies No Known Allergies Allergy (Verified 08/24/16 12:58) per pt Current Medication List: Reviewed Home Medications Aspirin [Aspirin EC] 81 mg PO HS 03/18/13 Nitroglycerin [Nitrostat] 0.4 mg SL Q5M PRN 03/18/13 Acetaminophen Ex Str Tablet [TYLENOL EXTRA STRENGTH Tablet] 1,000 mg PO Q4H PRN 08/10/16 Ferrous Sulfate [Feosol] 325 mg PO QAM 08/10/16 Guaifenesin [Robitussin] 10 ml PO .[id number] PRN 08/10/16 Isosorbide Mononitrate [Isosorbide Mononitrate ER] 60 mg PO QAM 08/10/16 Magnesium Hydroxide [Milk of Magnesia] 30 ml PO DAILY PRN 08/10/16 Magnesium Hydroxide/Al Hydrox [Mylanta Liquid] 30 ml PO QID PRN 08/10/16 Melatonin/Pyridoxine [Melatonin 3 mg Tablet] 1 each PO HS 08/10/16 Multivitamin [Multiple Vitamins] 1 each PO QAM 08/10/16 Neomy Sulf/Bacitrac Zn/Poly [Triple Antibiotic Ointment] 28 gm TOP Q12H PRN Pantoprazole Sodium [Protonix] 40 mg PO MOWEFR 08/10/16 Pravastatin [Pravachol] 20 mg PO HS 08/10/16 Carvedilol [Coreg] 3.125 mg PO BID #60 tablet 08/13/16 POTASSIUM CHLORIDE Tablet [K-DUR 20 mEq Tablet*] 20 meq PO DAILY@1200 #30 tab.er.prt 08/13/16 Ensure [Ensure Plus (Chocolate)] 240 ml PO BID 08/24/16 Furosemide [Lasix] 40 mg PO 0800 08/24/16 Hydrocortisone/Aloe Vera [Hydrocortisone-Aloe 0.5% Cream] 28.4 gm TOP Q6H PRN Lisinopril [Zestril] 5 mg PO 0800 08/24/16 Loperamide HCl [Anti-Diarrheal] 2 mg PO DIR PRN 08/24/16 Mirtazapine 7.5 mg PO 199908/24/16 - Family History Reports: Diabetes - Social History Travel Outside of US in the Last 3 Months?: No Lives: in Assisted Living (With his ) Smoking Status: Never smoker Social History: Denies: Alcohol Use, Substance Use Disorder - Review of Systems Constitutional: Loss of Appetite, Weakness, Weight loss (Possibly but unsure about current weight loss). negative: Chills, Fever Eyes: No Symptoms Reported (No blurry vision, visual changes, eye pain, or eye redness.) Ears: No Symptoms Reported (No ear pain or discharge) Nose: No Symptoms Reported (No nasal discharge/congestion or bleeding) Mouth: No Symptoms Reported (No oropharyngeal lesions or erythema) Throat/Neck: No Symptoms Reported (No throat pain or swelling.No oropharyngeal lesions or erythema.) Respiratory: Dyspnea. negative: Shortness of Breath, Wheezing, Sputum Cardiovascular: Orthopnea, PND. negative: Palpitations, Syncope Gastrointestinal: negative: Nausea, Vomiting, Abdominal Pain Genitourinary: No Symptoms Reported (No dysuria or hematuria.) Neurological: Dizziness, Weakness Musculoskeletal:: Other (Vertebral compression fractures) Integumentary: No Symptoms Reported (no rashes or lesions) Allergic/Immunologic: No Symptoms Reported (no rashes or lesions) Hematologic: No Symptoms Reported (No chronic anemia, bleeding, or easy bruising.), Other (Lymphatics- no lymph node swelling or pain.) Endocrine: No Symptoms Reported (No thyroid issues, polyuria, or polydipsia.) Psychiatric: No Symptoms Reported (Fully oriented, with normal and appropriate affect.) - Physical Exam Vital Signs: Initial Vitals Temperature 98.1 F 08/24/16 12:41 Pulse Rate 84 08/24/16 12:41 Respiratory Rate 18 08/24/16 12:41 Blood Pressure 126/58 L 08/24/16 12:41 Pulse Oxygen Saturation 92 08/24/16 12:41 Constitutional: Alert. negative: Distress, Well nourished, Well appearing Oriented to: Time, Person, Place - HEENT Head: Normal (normocephalic, atraumatic.), Other (No cervical lymphadenopathy. No supraclavicular lymphadenopathy. Neck: No palpable mass, supple , trachea midline.) Eye: Normal (pupils equal, reactive to light, and round; EOMI, Sclera white) Oropharynx: Normal (Pharynx: Moist without exudate,Gums-no swelling, No oropharyngeal lesions or erythema, Mucous membranes are dry.) Nose: No Symptoms Reported (septum midline, Nares patent, without discharge or bleeding.) Respiratory: Rales. negative: Accessory Muscle Use, Rhonchi, Wheezes Cardiovascular: Normal (RRR , Normal S1, S2. No murmurs, rubs, or gallops. PMI non-displaced. Carotids: no carotid bruits. No bradycardia or tachycardia. DP pulses 2+ bilaterally.) - GI Auscultation: Normal (normal active sounds) Palpation: Normal (Soft,non distended,nontender. No hepatosplenomegaly.) Tenderness: Non tender (No rebound or guarding) Carmona's Sign: Negative - Musculoskeletal Back: Normal (Non-Tender) Extremities: Edema (About the ankles bilaterally). negative: Clubbing, Cyanosis - Integumentary Skin: Normal (Clean, dry, and intact. No rashes. No lesions.) Lymphatics: Normal (No cervical lymphadenopathy. No supraclavicular lymphadenopathy.) - Neurologic Memory Impaired: Normal Motor Function: Normal (Motor 5/5 throughout.Normal tone, Pulses 2+ No cyanosis or edema, FROM) Cranial Nerve: Normal (CN II-XII intact sensation, strength 5/5) Cerebellar: Normal (Babinski: toes downgoing bilaterally. Intact Finger to nose. Sensory grossly intact to light touch. Intact rapid alternating movements bilaterally. No pronator drift.) Mood Description: Normal (Fully oriented. Normal and appropriate affect.) Perception: Normal (Normal and appropriate affect.) - Focused CV Perfusion Exam Vital Signs: Last Vital Signs Temp 98.1 F 08/24/16 12:41 Pulse 74 08/24/16 16:18 Resp 20 08/24/16 16:18 BP 146/60 08/24/16 16:18 Pulse Ox 96 08/24/16 16:18 - Lab Results Laboratory Results - last 24 hr 08/24/16 08/24/16 08/24/16 13:35 14:05 14:05 WBC 8.8 RBC 3.92 L Hgb 12.1 L Hct 35.6 L MCV 91 MCH 30.9 MCHC 34.1 RDW 14.9 H Plt Count 175 MPV 7.7 Neut % (Auto) 69.2 Lymph % (Auto) 16.4 L [place] % (Auto) 8.2 Eos % (Auto) 5.2 H Baso % (Auto) 1.0 Absolute Neuts (auto) 6.07 Absolute Lymphs (auto) 1.41 PT INR APTT Sodium 137 Potassium 4.4 Chloride 105 Carbon Dioxide 26 Anion Gap 10 BUN 28 H Creatinine 1.40 H Estimated GFR (MDRD) 48 L Glucose 100 H Calculated Osmolality 270 Calcium 8.2 L Corrected Calcium 9.1 Total Bilirubin 0.9 AST 30 ALT 39 Alkaline Phosphatase 70 Troponin I 0.37 Gwq-[id number]-Invjajzfgjm Pept 39151 H Total Protein 6.4 Albumin 3.1 L Urine Color Pale yell0w Urine Clarity Clear Urine pH 6.0 Ur Specific [place] 1.010 Urine Protein Neg Urine Glucose (UA) Neg Urine Ketones Neg Urine Occult Blood Neg Urine Nitrite Neg Urine Bilirubin Neg Urine Urobilinogen 0.2 Ur Leukocyte Esterase Neg Urine RBC 0-2 Ur Epithelial Cells Occ Urine Bacteria Few Hyaline Casts 0-2 Urine Mucus Occ 08/24/16 14:05 WBC RBC Hgb Hct MCV MCH MCHC RDW Plt Count MPV Neut % (Auto) Lymph % (Auto) [place] % (Auto) Eos % (Auto) Baso % (Auto) Absolute Neuts (auto) Absolute Lymphs (auto) PT 12.7 H INR 1.2 APTT 29.2 Sodium Potassium Chloride Carbon Dioxide Anion Gap BUN Creatinine Estimated GFR (MDRD) Glucose Calculated Osmolality Calcium Corrected Calcium Total Bilirubin AST ALT Alkaline Phosphatase Troponin I Jhi-R-Mdzzyoljpss Pept Total Protein Albumin Urine Color Urine Clarity Urine pH Ur Specific [place] Urine Protein Urine Glucose (UA) Urine Ketones Urine Occult Blood Urine Nitrite Urine Bilirubin Urine Urobilinogen Ur Leukocyte Esterase Urine RBC Ur Epithelial Cells Urine Bacteria Hyaline Casts Urine Mucus - Diagnostic Findings CHEST 2 VIEW COMPARISON: Chest x-rays dated 08/11/2016 and 04/18/2009. FINDINGS: Stable opacity at the left lung base, presumably pleural effusion. Significantly improved aeration within the right upper lobe, indicating resolving pneumonia. No new lung abnormality. Cardiomediastinal silhouette is stable in size and configuration. Patient is status post median sternotomy for presumed CABG. Sternotomy wires appear intact and stable in alignment. Stable compression fracture deformities are seen within the thoracic and upper lumbar spine. 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 No acute osseous abnormality appreciated. IMPRESSION: 1. Significantly improved aeration within the right upper lobe, consistent with a resolving pneumonia. 2. Stable moderate-sized left pleural effusion. 3. No new lung findings. 4. Stable old compression fracture deformities within the thoracic and upper lumbar spine. No acute osseous abnormality appreciated. Electronically Signed By: Favio Nunez M.D. On: 08/24/2016 15:15 EXAM: LUMBAR SPINE - COMPLETE 4+ VIEW COMPARISON: Lumbar spine series 8 11/12/2012. FINDINGS: There is a remote compression fracture of the L2 vertebral body which has significantly progressed since the prior x-rays. It has a vertebral plana appearance. No other compression fractures are identified. There are moderate degenerative changes most notably involving the facet joints but no definite pars defects. The visualized bony pelvis is intact. Both hips are normally located. No obvious pelvic fracture. IMPRESSION: Vertebral plana appearance of L2 is likely progressive compression since the prior x-rays. Degenerative disc disease and facet disease but no definite acute fractures. Electronically Signed By: Livan Meneses M.D. On: 08/24/2016 15:18 EKG Time: 13:53 -: Yes EKG interpreted by me Rate: bpm: 73 [place]: Normal Rhythm: NSR Block: None Hypertrophy: None ST: Ant, Ischemia Comments: PROLONGED QT Comparison: 08/10/16 (SOME CHANGE) EKG was personally seen by me. - Assessment (1) Cardiac cachexia I51.9 - HEART DISEASE, UNSPECIFIED Acute Present on Admission: Yes Patient has developed a poor appetite has stopped eating essentially. He seems very weak and is having difficulty with recurrent congestive heart failure. As the patient appears to be in heart failure but does not appear to have a significant amount of edema I will consult Cardiology for further input. Please see below for my discussion of the social issues around this and a plan (2) Falls frequently R29.6 - REPEATED FALLS Acute Present on Admission: Yes Physical therapy will evaluate the patient and will see if we can adjust any medications that may be contributing to falls although I did see anything that stuck out when I reviewed his medication list. I believe he may be falling due to persistent congestive heart failure. There may also be a component of weakness of his leg given that he has vertebral compression fractures. Also check hip films (3) Acute decompensated heart failure I50.9 - HEART FAILURE, UNSPECIFIED Acute Present on Admission: Yes Admitted into the hospital and treat with IV Lasix. Use congestive heart failure evidence based care order set. I have consulted Dr. Jay. (4) Dyspnea R06.00 - DYSPNEA, UNSPECIFIED Acute Present on Admission: Yes Qualifiers: Dyspnea type: shortness of breath Qualified Code(s): R06.02 - Shortness of breath Patient with persistent shortness of breath. Try diuresis. I wonder if there is not a component of CHRONIC OBSTRUCTIVE PULMONARY DISEASE here. I will start p.r.n. nebs. (5) Hyperlipidemia E78.5 - HYPERLIPIDEMIA, UNSPECIFIED Acute Present on Admission: Yes Qualifiers: Hyperlipidemia type: familial hypercholesterolemia Qualified Code(s): E78.01 - Familial hypercholesterolemia Continue statin. (6) GERD (gastroesophageal reflux disease) K21.9 - GASTRO-ESOPHAGEAL REFLUX DISEASE WITHOUT ESOPHAGITIS Chronic Qualifiers: Esophagitis presence: without esophagitis Qualified Code(s): K21.9 - Gastro -esophageal reflux disease without esophagitis continue ppi (7) Valvular disease Chronic Present on Admission: Yes Noted on previous echocardiogram [id number]. - Plan Patient his have recently moved into [place]. When they were apart when she was ill and then with his subsequent illness they did not do well. They have been for more than 60 years. Patient's son and daughters goals are to keep them together. They feel that the 2 of them being together is more important than longevity for either. Given that Mr. weller requires a significant amount of care and is having problems with heart failure he may benefit from hospice care. They would come out to [place] they would provide him with multiple nursing visits per week as well as an aide and I believe that he might benefit from additional detailed management. I mentioned this to the patient's son and daughter and they were interested in pursuing this because they desperately wanted to keep the parents together at [facility]. I have mentioned this to Dr. Jay when I discussed the case with him upon consultation. Will pursue this plan. Case Care Discussed with: Patient, Consultants, Family, Nursing Staff Total Time: 90 minutes Critical Care: No Couseling Time (>50% in counseling/coordination): No
[2016-08-24] MEDS ORDERED: Albuterol/Ipratropium Neb 3 ML NEB NEB PRN (17:16)
[2016-08-24] MEDS ORDERED: MORPHINE 2 MG/ML INJECTION IV PRN (17:16)
[2016-08-24] MEDS ORDERED: SODIUM CHLORIDE 0.9% 3 ML FLUSH FLUSH PRN (17:16)
[2016-08-24] MEDS ORDERED: Pharmacy Order Set Alert SCH (18:00)
[2016-08-24] MEDS: PANTOPRAZOLE 40 MG TAB PO SCH (18:12)
[2016-08-24] MEDS ORDERED: Vaccine Screening Complete SCH (20:00)
[2016-08-24] MEDS: SODIUM CHLORIDE 0.9% 3 ML FLUSH FLUSH SCH (20:20)
[2016-08-24] MEDS: CARVEDILOL 3.125 MG TAB PO SCH (20:37)
[2016-08-24] MEDS: NUTRITIONAL SUPPLEMENT PO SCH (20:38)
[2016-08-24] MEDS: MIRTAZAPINE 15 MG TAB PO SCH (20:38)
[2016-08-24] MEDS: PRAVASTATIN 20 MG TAB PO SCH (20:38)
[2016-08-24] MEDS: [UNRECOGNIZED DRUG - OTHER] PO SCH (20:38)
[2016-08-24] MEDS ORDERED: PYRIDOXINE PO SCH (21:00)
[2016-08-24] MEDS ORDERED: MELATONIN PO SCH (21:00)
[2016-08-24] MEDS: FUROSEMIDE 40 MG/4 ML VIAL IV SCH (23:35)
[2016-08-25 02:54] LABS: BLOOD UREA NITROGEN 29 MG/DL (9-20); CALCIUM 8.2 MG/DL (8.4-10.2); CALCULATED OSMOLALITY 270 MOs/Kg (270-290); CHLORIDE 103 mEq/L (98-107); GLUCOSE 90 MG/DL (70-99); SODIUM LEVEL 137 mEq/L (137-146)
[2016-08-25 03:10] LABS: AUTOMATED BASOPHIL 0.9 % (0-2); AUTOMATED EOSINOPHIL 8.7 % (0-5); AUTOMATED LYMPH 18.9 % (17-44); AUTOMATED MONOCYTE 9.9 % (3-10); AUTOMATED NEUTROPHIL 61.6 % (45-76); MPV 8.4 fL (7.4-10.4)
[2016-08-25] MEDS: SODIUM CHLORIDE 0.9% 3 ML FLUSH FLUSH SCH ×2 (05:15→17:23)
--- NOTE | 2016-08-25 07:36 | DIRPT ---
CLINICAL DATA: CHF EXAM: PORTABLE CHEST 1 VIEW COMPARISON: 08/24/2016 FINDINGS: Right upper lobe infiltrate unchanged. Probable pneumonia. Progression of bibasilar atelectasis and effusion left greater than right. No significant edema. IMPRESSION: Right upper lobe pneumonia unchanged Progression of bibasilar atelectasis and effusion Electronically Signed By: Wilver Hillman M.D. On: 08/25/2016 07:34
[2016-08-25] MEDS ORDERED: FUROSEMIDE 40 MG TAB PO SCH (08:00)
--- NOTE | 2016-08-25 08:48 | PCM.CARDCO ---
Consultation Date: 08/25/16 Requesting Physician: Maureen Sprague (refractory chf) Consulting Doctor: Dewey Jay Consult Reason: CHF Travel Outside of US in the Last 3 Months?: No Consultation Note: History of Present Illness: Pt is a frail 85 yo WM with long hx ASHD s/p CABG at [facility] 1996. Followed through the years by Dr. Goddard at [facility], began Cardiology f/u with our Dr. Abrams in 2013, who last saw him in consult during admission here for decomp CHF. Pt was discharged Aug 13 and joined his in [facility], discharge weight 112#. Pt was sent back to ER yesterday with c/o several falls in prior few days. Eval in ER disclosed elevaed BNP and CXR suggesting CHF, and pt re-admitted. Pt is alert, responsive and comfortable. His major complaint is "can't do anything anymore", and notes that he fell twice in recent days. "It (back.legs) hurts when I move". He denies any recent chest pain. Denies SOB or PND. No hx of syncope or unresponsiveness.EKG Past Medical History: ASHD, ischemic CM, sys/marcos CHF, CKD, dyslipidemia, impaired short term memory Past Surgical History: CABG 1996: [facility]. FONSECA-LAD, SVG-D1, SVG-LCxOM, SVG-RCA stent of SVG-LCxOM in ? 2008. 3/4 grafts patent then. Allergies No Known Allergies Allergy (Verified 08/24/16 12:58) per pt Home Medications Aspirin [Aspirin EC] 81 mg PO HS 03/18/13 Nitroglycerin [Nitrostat] 0.4 mg SL Q5M PRN 03/18/13 Acetaminophen Ex Str Tablet [TYLENOL EXTRA STRENGTH Tablet] 1,000 mg PO Q4H PRN 08/10/16 Ferrous Sulfate [Feosol] 325 mg PO QAM 08/10/16 Guaifenesin [Robitussin] 10 ml PO .[id number] PRN 08/10/16 Isosorbide Mononitrate [Isosorbide Mononitrate ER] 60 mg PO QAM 08/10/16 Magnesium Hydroxide [Milk of Magnesia] 30 ml PO DAILY PRN 08/10/16 Magnesium Hydroxide/Al Hydrox [Mylanta Liquid] 30 ml PO QID PRN 08/10/16 Melatonin/Pyridoxine [Melatonin 3 mg Tablet] 1 each PO HS 08/10/16 Multivitamin [Multiple Vitamins] 1 each PO QAM 08/10/16 Neomy Sulf/Bacitrac Zn/Poly [Triple Antibiotic Ointment] 28 gm TOP Q12H PRN Pantoprazole Sodium [Protonix] 40 mg PO MOWEFR 08/10/16 Pravastatin [Pravachol] 20 mg PO HS 08/10/16 Carvedilol [Coreg] 3.125 mg PO BID #60 tablet 08/13/16 POTASSIUM CHLORIDE Tablet [K-DUR 20 mEq Tablet*] 20 meq PO DAILY@1200 #30 tab.er.prt 08/13/16 Ensure [Ensure Plus (Chocolate)] 240 ml PO BID 08/24/16 Furosemide [Lasix] 40 mg PO 0800 08/24/16 Hydrocortisone/Aloe Vera [Hydrocortisone-Aloe 0.5% Cream] 28.4 gm TOP Q6H PRN Lisinopril [Zestril] 5 mg PO 0800 08/24/16 Loperamide HCl [Anti-Diarrheal] 2 mg PO DIR PRN 08/24/16 Mirtazapine 7.5 mg PO 199908/24/16 Family History: no premature CAD. Social History: Traveled outside the in the last 3 months? No Never smoker , has joined at [facility]. Review of Systems: ROS limited by short term memory deficit. Back/leg pain as noted. Physical Examination: Physical Exam GEN: Frail eldery gentleman, in NAD. Alert, verbally responsive Weight 116# yesterday vs 112# on discharge 08/13. VS: as above HEENT: no obvious JVD. Carotids noraml CHEST: essentially clear; no rales or wheezing COR: RR, harsh 2/6 KYLE of , no distinct MR or AI murmur, no s3. ABD: soft, non-tender, no distention EXTREM: thin; Fredy hose, no edema right, ? mild 1+ left SKIN: warm, dry NEURO: alert, mental status not eval, normal speech , no focal motor deficit Intake & Output 08/22/16 08/23/16 08/24/1631/17 23:59 23:59 23:59 23:59 Intake Total 300 Output Total 750 1125 Balance -750 -825 Patient's weight 52.707 kg 49.396 kg Vital Signs - 8 hr 08/25/16 08/25/16 08/25/16 05:16 08:00 08:36 Temperature Pulse Rate 69 64 70 Respiratory 18 Rate Blood Pressure 116/56 L Pulse Oxygen 97 Saturation 08/25/16 08/25/16 08:54 11:41 Temperature 97.6 F Pulse Rate 69 Respiratory 18 Rate Blood Pressure 109/52 L Pulse Oxygen 95 97 Saturation Temperature: 97.5 F (08/25/16 03:21)HR: 70 (08/25/16 08:36)RR: 18 (08/25/16 08: 36)BP: 116/56 (08/25/16 08:36) SAT:97 (08/25/16 08:36) [] LAB/DI: [] Laboratory Tests 08/24/16 08/24/16 08/25/16 14:05 19:50 02:20 WBC Hgb Hct Plt Count Sodium 137 137 Potassium 4.4 3.8 Chloride 103 Carbon Dioxide 28 BUN 28 H 29 H Creatinine 1.40 H 1.50 H Estimated GFR (MDRD) 48 L 44 L Glucose 100 H Total Bilirubin 0.9 AST 30 ALT 39 Alkaline Phosphatase 70 Troponin I 0.37 0.43 H* Ype-H-Vrtmkzrelen Pept 55311 H Albumin 3.1 L 08/25/16 02:20 WBC 8.2 Hgb 12.0 L Hct 35.5 L Plt Count 164 Sodium Potassium Chloride Carbon Dioxide BUN Creatinine Estimated GFR (MDRD) Glucose Total Bilirubin AST ALT Alkaline Phosphatase Troponin I [id number] Pept Albumin EKGs 08/24 and 08/25: NSR. Symmetrical T inversions anteroseptal leads. NO evolution tele: NSR CXR: interstitial prominence, no alveolar infiltrates ECHO 08/11/16: mod diffuse hypokinesis, EF 35-40%, mild /mild AI, mild MR, mildly impaired RV function, miild TR, PA 44/-- estimated IMPRESSION: - adult failure to thrive - severely deconditioned, out of proportion to systolic CHF - modest decomp of chronic combined sys/marcos CHF - ASHD stable, no angina, borderline troponin c/w decomp CHF - Recommendations REC: agree with modest intensification of diuretic therapy, guided by weights , BMP and BNP - agree with PT consult. I think cardiac care is nearly optimized. Generalized weakness, falls likely multifactorial - Will follow at a distance through hospitalization. Anticipate return to [facility] with increased supports, assistance with ADLs. ? if pt's needs and ' s are matched - pt may need SNF
--- NOTE | 2016-08-25 09:08 | GENMEDPROG ---
Chief Complaint: Failure to thrive Subjective Note: Patient resting comfortably in bed this morning. He has received his breakfast. He has no acute complaints, other than hurting all over. Notes Reviewed: Yes Events from last night noted and discussed with Clinical Staff Current Medication List: Reviewed Currently: Reports: Cough DVT Prophylaxis: Yes - Physical Examination Vital Signs and I&O: Last Vital Signs Temp 97.5 F 08/25/16 03:21 Pulse 70 08/25/16 08:36 Resp 18 08/25/16 08:36 BP 116/56 L 08/25/16 08:36 Pulse Ox 95 08/25/16 08:54 Oxygen Pulse Oxygen Saturation 95 O2 Device Room Air Oxygen Flow Rate Fraction of Inspired Oxygen ( FIO2) Intake & Output 08/23/16 08/24/16 08/25/16 08/26/16 06:59 06:59 06:59 06:59 Intake Total 60 240 Output Total 1450 Balance -1390 240 Patient's weight 49.396 kg General: Alert, Cooperative, Mild distress Neck: Normal Trachea alignment, Normal inspection Lymphatics: Normal (No cervical lymphadenopathy. No supraclavicular lymphadenopathy.) Respiratory: Diminished (Diminished on the left side.). negative: Accessory Muscle Use, Rales, Rhonchi, Wheezes Cardiovascular: Regular rate, No Gallops,Rubs/Murmurs GI: Normal bowel sounds, Soft, Non tender (non distended) Extremities/Musculoskeletal: Other (Normal Tone). negative: Edema, Cyanosis Very thin and frail elderly gentleman appearing his stated age. Resting relatively comfortably in bed this morning. He has trace peripheral edema in his ankles bilaterally. Lab/DI/Studies Reviewed: Laboratory Tests 08/24/16 08/24/16 08/25/16 14:05 17:30 02:20 WBC Hgb Hct Potassium BUN Creatinine 1.40 H Troponin I 0.37 0.43 H* 08/25/16 08/25/16 02:20 02:20 WBC 8.2 Hgb 12.0 L Hct 35.5 L Potassium 3.8 BUN 29 H Creatinine 1.50 H Troponin I - Assessment (1) Cardiac cachexia Acute I51.9 - HEART DISEASE, UNSPECIFIED Comment/Plan: Patient has developed a poor appetite has stopped eating essentially. He seems very weak and is having difficulty with recurrent congestive heart failure. As the patient appears to be in heart failure but does not appear to have a significant amount of edema I will consult Cardiology for further input. Also note that the patient's is recently been transfer to facility, and patient children feel that them staying together is very important for their happiness, even if it means a detrimental effect to their on [place]. Hospice may be a very good option for this patient, given the increased level of support that it could provide. This was discussed by the admitting physician with the family, they are open to this possibility. As such, a hospice consult has been placed this morning for them to discuss the services offered. (2) Falls frequently Acute R29.6 - REPEATED FALLS Comment/Plan: Physical therapy will evaluate the patient and will see if we can adjust any medications that may be contributing to falls although I did see anything that stuck out when I reviewed his medication list. I believe he may be falling due to persistent congestive heart failure. There may also be a component of weakness of his leg given that he has vertebral compression fractures. Also check hip films (3) Dyspnea Acute R06.00 - DYSPNEA, UNSPECIFIED Qualifiers: Dyspnea type: shortness of breath Qualified Code(s): R06.02 - Shortness of breath Comment/Plan: Patient with persistent shortness of breath. Try diuresis. I wonder if there is not a component of CHRONIC OBSTRUCTIVE PULMONARY DISEASE here. P.r.n. nebulizers have been started. (4) Heart failure, chronic, with acute decompensation Acute I50.9 - HEART FAILURE, UNSPECIFIED Qualifiers: Heart failure type: diastolic Qualified Code(s): I50.33 - Acute on chronic diastolic (congestive) heart failure Comment/Plan: Patient was recently treated in this hospital for heart failure with exit acute exacerbation. He responded well to IV diuretic, and was discharged home in near euvolemic state. Today, he does not look any more fluid overloaded that at the time of his last discharge. It is unclear to me why his BNP is severely elevated and he has not been doing well. Cardiology is following, appreciate their input. Continue moderate dose IV Lasix diuresis today. Keep a close eye on his electrolytes and renal function daily. (5) Hyperlipidemia Acute E78.5 - HYPERLIPIDEMIA, UNSPECIFIED Qualifiers: Hyperlipidemia type: familial hypercholesterolemia Qualified Code(s): E78.01 - Familial hypercholesterolemia Comment/Plan: Continue statin. (6) Hypertensive heart disease with CHF Acute I11.0 - HYPERTENSIVE HEART DISEASE WITH HEART FAILURE (7) GERD (gastroesophageal reflux disease) Chronic K21.9 - GASTRO-ESOPHAGEAL REFLUX DISEASE WITHOUT ESOPHAGITIS Qualifiers: Esophagitis presence: without esophagitis Qualified Code(s): K21.9 - Gastro -esophageal reflux disease without esophagitis Comment/Plan: continue ppi (8) Hyperlipemia Chronic E78.5 - HYPERLIPIDEMIA, UNSPECIFIED Qualifiers: Hyperlipidemia type: unspecified Qualified Code(s): E78.5 - Hyperlipidemia , unspecified Comment/Plan: Continue statin Case Care Discussed with: Patient, Nursing Staff Total Time: 48
[2016-08-25] MEDS: CARVEDILOL 3.125 MG TAB PO SCH ×2 (09:14→20:48)
[2016-08-25] MEDS: FUROSEMIDE 40 MG/4 ML VIAL IV SCH ×3 (09:14→17:24)
[2016-08-25] MEDS: NUTRITIONAL SUPPLEMENT PO SCH (09:14)
[2016-08-25] MEDS: LISINOPRIL 5 MG TAB PO SCH (09:14)
[2016-08-25] MEDS: [UNRECOGNIZED DRUG - OTHER] PO SCH (09:14)
[2016-08-25] MEDS: ISOSORBIDE MONONITRATE 60 MG TAB PO SCH (09:15)
[2016-08-25] MEDS: POTASSIUM CHLORIDE 20 MEQ TAB PO SCH (13:49)
[2016-08-25] MEDS: VITAMINS, MULTIPLE CAP PO SCH (13:50)
[2016-08-25] MEDS: FERROUS SULFATE 324 MG TAB PO SCH (13:51)
[2016-08-25] MEDS: ACETAMINOPHEN 500 MG CAPLET PO PRN (14:39)
[2016-08-25] MEDS: ENOXAPARIN 30 MG/0.3 ML PFS SQ SCH (17:22)
[2016-08-25] MEDS: PRAVASTATIN 20 MG TAB PO SCH (20:47)
[2016-08-25] MEDS: MIRTAZAPINE 15 MG TAB PO SCH (20:48)
[2016-08-26] MEDS: FUROSEMIDE 40 MG/4 ML VIAL IV SCH ×4 (00:29→23:31)
[2016-08-26] MEDS: SODIUM CHLORIDE 0.9% 3 ML FLUSH FLUSH SCH ×2 (04:54→18:46)
--- NOTE | 2016-08-26 10:20 | GENMEDPROG ---
Chief Complaint: Weakness, falls Subjective Note: Currently without any complaints, sitting up at the bedside in a chair having some breakfast. Denies any chest pain or shortness of breath. Notes Reviewed: Yes: Events from last night noted and discussed with Clinical Staff Current Medication List: Reviewed Currently: Reports: Cough DVT Prophylaxis: Yes - Physical Examination Vital Signs and I&O: Last Vital Signs Temp 97.6 F 08/26/16 07:31 Pulse 70 08/26/16 07:31 Resp 18 08/26/16 07:31 BP 129/60 08/26/16 07:31 Pulse Ox 96 08/26/16 08:00 Oxygen Pulse Oxygen Saturation 96 O2 Device Room Air Oxygen Flow Rate Fraction of Inspired Oxygen ( FIO2) Intake & Output 08/24/16 08/25/16 08/26/16 08/27/16 06:59 06:59 06:59 06:59 Intake Total 60 720 Output Total 1450 1325 Balance -1390 -605 Patient's weight 49.396 kg 51.573 kg General: Alert, Cooperative, Mild distress Neck: Normal Trachea alignment, Normal inspection Lymphatics: Normal (No cervical lymphadenopathy. No supraclavicular lymphadenopathy.) Respiratory: Diminished (Diminished on the left side.). negative: Accessory Muscle Use, Rales, Rhonchi, Wheezes Cardiovascular: Regular rate, No Gallops,Rubs/Murmurs GI: Normal bowel sounds, Soft, Non tender (non distended) Extremities/Musculoskeletal: Other (Normal Tone.). negative: Edema, Cyanosis - Assessment (1) Cardiac cachexia Acute I51.9 - HEART DISEASE, UNSPECIFIED Comment/Plan: Per report, the patient developed a poor appetite recently and stopped eating essentially. However, here in the hospital after some diuresis he is feeling much better and is eating well it seems. He seems very weak and is having difficulty with recurrent congestive heart failure. Cardiology was consulted for further input , since he appears to be in some slight heart failure but does not have significant amount of edema. Cardiology agrees with some increase in his baseline diuresis, but does feel that his weakness and falls were likely multifactorial in nature. Note that the patient's was recently transferred to facility, where he lives with her. My partners of had long conversations with the patient's family , who understand that while it may not be ideal for the patient himself to be at the assisted living facility with his from a medical perspective, they feel that for his mental well being may would prefer that they stayed together, even if it has an adverse effect on their longevity. Hospice consult has been placed, as they may be per to provide services for the patient. They will be evaluating him today. (2) Falls frequently Acute R29.6 - REPEATED FALLS Comment/Plan: Physical therapy will evaluate the patient and will see if we can adjust any medications that may be contributing to falls although I did see anything that stuck out when I reviewed his medication list. I believe he may be falling due to persistent congestive heart failure. There may also be a component of weakness of his leg given that he has vertebral compression fractures. Also check hip films (3) Dyspnea Acute R06.00 - DYSPNEA, UNSPECIFIED Qualifiers: Dyspnea type: shortness of breath Qualified Code(s): R06.02 - Shortness of breath Comment/Plan: Patient with persistent shortness of breath. Try diuresis. I wonder if there is not a component of CHRONIC OBSTRUCTIVE PULMONARY DISEASE here. P.r.n. nebulizers have been started. (4) Heart failure, chronic, with acute decompensation Acute I50.9 - HEART FAILURE, UNSPECIFIED Qualifiers: Heart failure type: diastolic Qualified Code(s): I50.33 - Acute on chronic diastolic (congestive) heart failure Comment/Plan: Patient was recently treated in this hospital for heart failure with exit acute exacerbation. He responded well to IV diuretic, and was discharged home in near euvolemic state. Today, he does not look any more fluid overloaded that at the time of his last discharge. It is unclear to me why his BNP is severely elevated and he has not been doing well. Cardiology is following, appreciate their input. Continue moderate dose IV Lasix diuresis today. Keep a close eye on his electrolytes and renal function daily. (5) Hyperlipidemia Acute E78.5 - HYPERLIPIDEMIA, UNSPECIFIED Qualifiers: Hyperlipidemia type: familial hypercholesterolemia Qualified Code(s): E78.01 - Familial hypercholesterolemia Comment/Plan: Continue statin. (6) Hypertensive heart disease with CHF Acute I11.0 - HYPERTENSIVE HEART DISEASE WITH HEART FAILURE (7) GERD (gastroesophageal reflux disease) Chronic K21.9 - GASTRO-ESOPHAGEAL REFLUX DISEASE WITHOUT ESOPHAGITIS Qualifiers: Esophagitis presence: without esophagitis Qualified Code(s): K21.9 - Gastro -esophageal reflux disease without esophagitis Comment/Plan: continue ppi (8) Hyperlipemia Chronic E78.5 - HYPERLIPIDEMIA, UNSPECIFIED Qualifiers: Hyperlipidemia type: unspecified Qualified Code(s): E78.5 - Hyperlipidemia , unspecified Comment/Plan: Continue statin
[2016-08-26] MEDS: LISINOPRIL 5 MG TAB PO SCH (10:49)
[2016-08-26] MEDS: ISOSORBIDE MONONITRATE 60 MG TAB PO SCH (10:49)
[2016-08-26] MEDS: CARVEDILOL 3.125 MG TAB PO SCH ×2 (10:49→20:13)
[2016-08-26] MEDS: FERROUS SULFATE 324 MG TAB PO SCH (10:49)
[2016-08-26] MEDS: POTASSIUM CHLORIDE 20 MEQ TAB PO SCH (10:49)
[2016-08-26 11:11] LABS: BLOOD UREA NITROGEN 35 MG/DL (9-20); CALCIUM 8.7 MG/DL (8.4-10.2); CALCULATED OSMOLALITY 274 MOs/Kg (270-290); CHLORIDE 100 mEq/L (98-107); GLUCOSE 91 mg/dL (70-99); SODIUM LEVEL 138 mEq/L (137-146)
[2016-08-26] MEDS: ACETAMINOPHEN 500 MG CAPLET PO PRN (12:57)
--- NOTE | 2016-08-26 15:34 | CAPUEKG ---
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 of Aug 24. Abnormal ECG Electronically Signed On 08-26-16 15:33:54 EST by Dewey Jay <[email or web address]> [id number]
[2016-08-26] MEDS: ENOXAPARIN 30 MG/0.3 ML PFS SQ SCH (18:46)
[2016-08-26] MEDS: PANTOPRAZOLE 40 MG TAB PO SCH (18:46)
[2016-08-26] MEDS: PRAVASTATIN 20 MG TAB PO SCH (20:13)
[2016-08-26] MEDS: MIRTAZAPINE 15 MG TAB PO SCH (20:13)
[2016-08-27 05:42] VITALS: BMI 18.1
[2016-08-27] MEDS: SODIUM CHLORIDE 0.9% 3 ML FLUSH FLUSH SCH (06:11)
[2016-08-27 06:33] LABS: MPV 8.4 fL (7.4-10.4)
[2016-08-27 06:42] LABS: BLOOD UREA NITROGEN 41 MG/DL (9-20); CALCIUM 9.1 MG/DL (8.4-10.2); CALCULATED OSMOLALITY 275 MOs/Kg (270-290); CHLORIDE 97 mEq/L (98-107); GLUCOSE 84 mg/dL (70-99); SODIUM LEVEL 138 mEq/L (137-146)
[2016-08-27] MEDS: CARVEDILOL 3.125 MG TAB PO SCH (08:19)
[2016-08-27] MEDS: FERROUS SULFATE 324 MG TAB PO SCH (08:19)
[2016-08-27] MEDS: POTASSIUM CHLORIDE 20 MEQ TAB PO SCH (08:19)
[2016-08-27] MEDS: LISINOPRIL 5 MG TAB PO SCH (08:19)
[2016-08-27] MEDS: FUROSEMIDE 40 MG/4 ML VIAL IV SCH (08:19)
[2016-08-27] MEDS: VITAMINS, MULTIPLE CAP PO SCH (08:20)
[2016-08-27] MEDS: ISOSORBIDE MONONITRATE 60 MG TAB PO SCH (08:20)
[2016-08-27 08:27] VITALS: BP 137/61; PULSE 72; TEMP 97.8
--- NOTE | 2016-08-27 09:47 | PCM.CARD ---
- Subjective Reason for visit: f/u acute/chronic combined sys/marcos CHF; weakness Subj: Pt offers no complaints. Seems pleased at prospect of returning to [facility] with increased supports. Denies chest discomfort. Denies dyspnea. Vital Signs: Last Vital Signs Temp 97.8 F 08/27/16 08:26 Pulse 72 08/27/16 08:26 Resp 20 08/27/16 08:26 BP 137/61 08/27/16 08:26 Pulse Ox 97 08/27/16 08:26 Intake & Output 08/25/16 08/26/16 08/27/16 08/28/16 23:59 23:59 23:59 23:59 Intake Total 780 720 720 Output Total 1729 3160 3270 Balance -437 -0948 -267 Patient's weight 49.396 kg 51.573 kg 50.802 kg PE: Physical Exam GEN: frail, elderly man, has difficulty sitting up in bed VS: as above HEENT: no JVD CHEST: clear COR: RR, Gr 2/6 KYLE R2ICS, no s3 ABD: soft, no distention EXTREM: no edema SKIN: warm, dry NEURO: alert, verbally responsive, moving all 4s, no tremor Lab/DI Results Reviewed: Laboratory Tests 08/24/16 08/24/16 08/25/16 14:05 19:50 02:20 Sodium 137 Potassium 4.4 Chloride Carbon Dioxide BUN 28 H Creatinine 1.40 H Estimated GFR (MDRD) 48 L Troponin I 0.43 H* 0.43 H* [id number] Pept 21374 H 08/26/16 08/27/16 10:25 05:30 Sodium 138 Potassium 4.3 Chloride 97 L Carbon Dioxide 32 BUN 41 H Creatinine 1.90 H Estimated GFR (MDRD) Troponin I 0.27 Emm-I-Ymolremhoky Pept 5350 H TELE: sinus, sinus roman; no dynamic ST-T changes. IMPRESSION: modest decomp of CHF is improved. - Plan REC: agree with transfer back to [facility] with increased supports there - con't current cardiac meds Going forward, periodic f/u BMP and BNP determinations can be used to guide diuretic dosing. - given multiple co-morbidities, formal CArdiology f/u with Dr. Abrams can be PRN
--- NOTE | 2016-08-27 09:56 | PCM.DCS92 ---
- Final/Secondary Discharge Diagnosis (1) Cardiac cachexia Acute I51.9 - HEART DISEASE, UNSPECIFIED Present on Admission: Yes Comment: Per report, the patient developed a poor appetite recently and stopped eating essentially. However, here in the hospital after some diuresis he is feeling much better and is eating well it seems. He seems very weak and is having difficulty with recurrent congestive heart failure. Cardiology was consulted for further input, since he appears to be in some slight heart failure but does not have significant amount of edema. Cardiology agrees with some increase in his baseline diuresis, but does feel that his weakness and falls were likely multifactorial in nature. Note that the patient's was recently transferred to facility, where he lives with her. My partners of had long conversations with the patient's family , who understand that while it may not be ideal for the patient himself to be at the assisted living facility with his from a medical perspective, they feel that for his mental well being may would prefer that they stayed together, even if it has an adverse effect on their longevity. Hospice consult has been placed, as they may be per to provide services for the patient. Hospice services have evaluate the patient, he will be returning back to assisted living facility with hospice services. (2) Falls frequently Acute R29.6 - REPEATED FALLS Present on Admission: Yes Comment: Physical therapy will evaluate the patient and will see if we can adjust any medications that may be contributing to falls although I did see anything that stuck out when I reviewed his medication list. I believe he may be falling due to persistent congestive heart failure. There may also be a component of weakness of his leg given that he has vertebral compression fractures. Also check hip films (3) Dyspnea Acute R06.00 - DYSPNEA, UNSPECIFIED Present on Admission: Yes shortness of breath R06.02 - Shortness of breath Comment: Patient with persistent shortness of breath. Try diuresis. I wonder if there is not a component of CHRONIC OBSTRUCTIVE PULMONARY DISEASE here. P.r.n. nebulizers have been started. (4) Heart failure, chronic, with acute decompensation Acute I50.9 - HEART FAILURE, UNSPECIFIED diastolic I50.33 - Acute on chronic diastolic (congestive) heart failure Comment: Patient was recently treated in this hospital for heart failure with exit acute exacerbation. He responded well to IV diuretic, and was discharged home in near euvolemic state. Today, he does not look any more fluid overloaded that at the time of his last discharge. It is unclear to me why his BNP is severely elevated and he has not been doing well. Cardiology is following, appreciate their input. Continue moderate dose IV Lasix diuresis today. Keep a close eye on his electrolytes and renal function daily. (5) Hyperlipidemia Acute E78.5 - HYPERLIPIDEMIA, UNSPECIFIED Present on Admission: Yes familial hypercholesterolemia E78.01 - Familial hypercholesterolemia Comment: Continue statin. (6) Hypertensive heart disease with CHF Acute I11.0 - HYPERTENSIVE HEART DISEASE WITH HEART FAILURE (7) GERD (gastroesophageal reflux disease) Chronic K21.9 - GASTRO-ESOPHAGEAL REFLUX DISEASE WITHOUT ESOPHAGITIS without esophagitis K21.9 - Gastro-esophageal reflux disease without esophagitis Comment: continue ppi (8) Hyperlipemia Chronic E78.5 - HYPERLIPIDEMIA, UNSPECIFIED unspecified E78.5 - Hyperlipidemia, unspecified Comment: Continue statin Discharge Disposition: Return to assisted living facility under the care of hospice medical research scientist. Discharge Condition: Good Cognitive Discharge Status: Unimpaired Fuctional Discharge Status: Walker Assistance Physician Follow up/Referrals: Les Montilla MD [Primary Care Provider] - One Week Home Medications / New Prescriptions: Continue Nitroglycerin [Nitrostat] 0.4 mg SL Q5M PRN PRN Reason: Chest Pain Or Discomfort Aspirin [Aspirin EC] 81 mg PO HS Guaifenesin [Robitussin] 10 ml PO .[id number] PRN PRN Reason: Cough Magnesium Hydroxide [Milk of Magnesia] 30 ml PO DAILY PRN PRN Reason: Constipation Acetaminophen Ex Str Tablet [TYLENOL EXTRA STRENGTH Tablet] 1,000 mg PO Q4H PRN PRN Reason: RENEE/MINOR PAIN Pravastatin [Pravachol] 20 mg PO HS Magnesium Hydroxide/Al Hydrox [Mylanta Liquid] 30 ml PO QID PRN PRN Reason: Heartburn Or Indigestion Pantoprazole Sodium [Protonix] 40 mg PO MOWEFR Melatonin/Pyridoxine [Melatonin 3 mg Tablet] 1 each PO HS Isosorbide Mononitrate [Isosorbide Mononitrate ER] 60 mg PO QAM Multivitamin [Multiple Vitamins] 1 each PO QAM Ferrous Sulfate [Feosol] 325 mg PO QAM Neomy Sulf/Bacitrac Zn/Poly [Triple Antibiotic Ointment] 28 gm TOP Q12H PRN PRN Reason: SKIN ABRASIONS/SKIN TEARS Carvedilol [Coreg] 3.125 mg PO BID #60 tablet POTASSIUM CHLORIDE Tablet [K-DUR 20 mEq Tablet*] 20 meq PO DAILY@1200 #30 tab.er.prt Loperamide HCl [Anti-Diarrheal] 2 mg PO DIR PRN PRN Reason: LOOSE STOOL Mirtazapine 7.5 mg PO 2000 Lisinopril [Zestril] 5 mg PO 0800 Furosemide [Lasix] 40 mg PO 0800 Ensure [Ensure Plus (Chocolate)] 240 ml PO BID Hydrocortisone/Aloe Vera [Hydrocortisone-Aloe 0.5% Cream] 28.4 gm TOP Q6H PRN PRN Reason: ITCH/RASH O2 Device: Room Air Diet at Discharge: Cardiac, Heart Healthy Activity: No Restrictions - DC Summary Notes HPI/Notes: This is a pleasant 85-year-old male with a history of CHF, end-stage, who was admitted to the hospital with failure to thrive, and mild CHF exacerbation. He was treated appropriately with IV diuresis to which she responded, and is now feeling better. He was seen in consultation for recommendations by Cardiology. He is now in near euvolemic, he will be discharged back to his assisted living facility today under the care of hospice services, which will allow him to continue to live with his with whom he is extremely close. Please see the hospital problems and discharge problems above for details of the hospital course including diagnostics and treatment. The plan of care including medications, prognosis, follow-up including alarm symptoms for which medical care should be sought were reviewed with the patient and any available family members/caretakers. The patient is agreeable to discharge today, and all questions were answered by me to their satisfaction. Hospital Course Note:: Discharge summary on patient named HELIO GILL admitted to [facility] on 08/24/16 by Maureen Sprague MD. Date of discharge is []. Total Time: 40 - Physical Exam Vital Signs: Last Vital Signs Temp 97.8 F 08/27/16 08:26 Pulse 72 08/27/16 08:26 Resp 20 08/27/16 08:26 BP 137/61 08/27/16 08:26 Pulse Ox 97 08/27/16 08:26 Oxygen Pulse Oxygen Saturation 97 O2 Device Room Air Oxygen Flow Rate Fraction of Inspired Oxygen ( FIO2) Constitutional: No apparent distress, Alert. negative: Distress, Well nourished , Well appearing Oriented to: Time, Person, Place Exam: Thin, frail appearing elderly gentleman appearing his stated age, resting comfortably in bed this morning. He has no acute complaints. - HEENT Head: Normal (normocephalic, atraumatic.), Other (No cervical lymphadenopathy. No supraclavicular lymphadenopathy. Neck: No palpable mass, supple , trachea midline.) Eye: Normal (pupils equal, reactive to light, and round; EOMI, Sclera white) Oropharynx: Normal (Pharynx: Moist without exudate,Gums-no swelling, No oropharyngeal lesions or erythema, Mucous membranes are dry.) Nose: No Symptoms Reported (septum midline, Nares patent, without discharge or bleeding.) - Respiratory/Cardiovascular Respiratory: Normal - CTA. negative: Accessory Muscle Use, Rales, Rhonchi, Wheezes Cardiovascular: Normal (RRR , Normal S1, S2. No murmurs, rubs, or gallops. PMI non-displaced. Carotids: no carotid bruits. No bradycardia or tachycardia. DP pulses 2+ bilaterally.) - GI Auscultation: Normal (normal active sounds) Palpation: Normal (Soft,non distended,nontender. No hepatosplenomegaly.) Tenderness: Non tender (No rebound or guarding) Carmona's Sign: Negative - Musculoskeletal Back: Normal (Non-Tender) Extremities: Edema (About the ankles bilaterally, trace.). negative: Clubbing, Cyanosis - Integumentary Lymphatics: Normal (No cervical lymphadenopathy. No supraclavicular lymphadenopathy.) - Neurologic Memory Impaired: Normal Cerebellar: Normal (Babinski: toes downgoing bilaterally. Intact Finger to nose. Sensory grossly intact to light touch. Intact rapid alternating movements bilaterally. No pronator drift.) Mood Description: Normal (Fully oriented. Normal and appropriate affect.) Perception: Normal (Normal and appropriate affect.)
[2016-08-27] MEDS: ACETAMINOPHEN 500 MG CAPLET PO PRN (13:09)
== END 2016-08-27 15:15 | disposition short-term general hospital (02) | DRG 291 ==
LOC: ED 12:19 → PCU 17:16
PROVIDERS: ADMIT Hospitalist; ATTEND Internal Medicine
DX: I13.0 Hypertensive heart and chronic kidney disease with heart failure and stage 1 through stage 4 chronic kidney disease, or unspecified chronic kidney disease (principal); I50.33 Acute on chronic diastolic (congestive) heart failure; R64 Cachexia; J44.9 Chronic obstructive pulmonary disease, unspecified; Z95.1 Presence of aortocoronary bypass graft; Z68.1 Body mass index [BMI] 19.9 or less, adult; Z51.5 Encounter for palliative care; N18.9 Chronic kidney disease, unspecified; R29.6 Repeated falls; R62.7 Adult failure to thrive; M48.50XD Collapsed vertebra, not elsewhere classified, site unspecified, subsequent encounter for fracture with routine healing; E78.01 Familial hypercholesterolemia; I25.5 Ischemic cardiomyopathy; K21.9 Gastro-esophageal reflux disease without esophagitis; I25.10 Atherosclerotic heart disease of native coronary artery without angina pectoris; F41.9 Anxiety disorder, unspecified; I25.2 Old myocardial infarction; Z66 Do not resuscitate; Z87.11 Personal history of peptic ulcer disease; Z79.82 Long term (current) use of aspirin; Z95.5 Presence of coronary angioplasty implant and graft
CPT/HCPCS: 36415; 71010; 71020; 72110; 80048; 80053; 81001; 83735; 83880; 84484; 85025; 85027; 85610; 85730; 93005; 94760; 96372; 96374; 97161; 97165; 99284; G0237; J1650; J1940; J3490